=== PATIENT | male | born 1965 | race Caucasian/White ===

== ENCOUNTER 2017-02-23 12:41 | Emergency (ER) | payer BC ==
--- NOTE | 2017-02-23 13:16 | EDM.PDOC ---
ED HPI GENERAL MEDICAL PROBLEM - General Chief Complaint: ENT Problem Stated Complaint: SORE THROAT AND GUMS Time Seen by Provider: 02/23/17 12:53 Source of Information: Reports: Patient History Limitations: Reports: No Limitations - History of Present Illness INITIAL COMMENTS - FREE TEXT/NARRATIVE: History of present illness: [51-year-old male coming in complaining of repeated ear infections the left ear as well as feeling like he has thrush in his mouth due to repeated antibiotic treatments.] Review of systems: As per history of present illness and below otherwise all systems reviewed and negative. Past medical history: As per history of present illness and as reviewed below otherwise noncontributory. Surgical history: As per history of present illness and as reviewed below otherwise noncontributory. Social history: No reported history of drug or alcohol abuse. Family history: As per history of present illness and as reviewed below otherwise noncontributory. Physical exam: HEENT: Atraumatic, normocephalic, pupils reactive, negative for conjunctival pallor or scleral icterus, mucous membranes moist with obvious yeastlike plaques on gums and back of throat, left TM noted to be perforated with a wet mucoid appearance with some amount of purulent drainage and odor, neck supple, nontender, trachea midline. Lungs: Clear to auscultation, breath sounds equal bilaterally, chest nontender. Heart: S1S2, regular, negative for clicks, rubs, or JVD. Abdomen: Soft, nondistended, nontender. Negative for masses or hepatosplenomegaly. Negative for costovertebral tenderness. Pelvis: Stable nontender. Genitourinary: Deferred. Rectal: Deferred. Extremities: Atraumatic, negative for cords or calf pain. Neurovascular unremarkable. Neuro: Awake, alert, oriented. Cranial nerves II through XII unremarkable. Cerebellum unremarkable. Motor and sensory unremarkable throughout. Exam nonfocal. Patient has an appointment with an planer off bearer for a tympanoplasty as well as a dialogue about stenting his eustachian tubes due to chronic collapse and subsequent chronic ear infection on the left only. Diagnostics: [] Therapeutics: [] Impression: [#1 left otitis media #2 oral thrush] Plan: [Augmentin, nystatin swish and spit] Definitive disposition and diagnosis as appropriate pending reevaluation and review of above. - Related Data Home Meds: Home Meds Amoxicillin/Potassium Clav [Augmentin 875-125 Tablet] 1 each PO BID #20 tablet 02/23/17 [Rx] Fluconazole [IJD: Fluconazole] 150 mg PO ONETIME #2 tab 02/23/17 [Rx] Nystatin 15 ml PO BID 10 Days #300 ml 02/23/17 [Rx] ED ROS GENERAL - Review of Systems Review Of Systems: See Below (See history of present illness) ED EXAM, GENERAL - Physical Exam Exam: See Below Departure - Departure Time of Disposition: 13:14 Disposition: Home, Self-Care 01 Condition: Good Clinical Impression: Otitis media, Thrush of mouth and esophagus - Discharge Information Prescriptions: Amoxicillin/Potassium Clav [Augmentin 875-125 Tablet] 1 each PO BID #20 tablet Fluconazole [IJD: Fluconazole] 150 mg PO ONETIME #2 tab Nystatin 15 ml PO BID 10 Days #300 ml Referrals: PCP,None [Primary Care Provider] - Additional Instructions: The following information is given to patients seen in the emergency department who are being discharged to home. This information is to outline your options for follow-up care. We provide all patients seen in our emergency department with a follow-up referral. The need for follow-up, as well as the timing and circumstances, are variable depending upon the specifics of your emergency department visit. If you don't have a primary care physician on staff, we will provide you with a referral. We always advise you to contact your personal physician following an emergency department visit to inform them of the circumstance of the visit and for follow-up with them and/or the need for any referrals to a consulting specialist. The emergency department will also refer you to a specialist when appropriate. This referral assures that you have the opportunity for follow-up care with a specialist. All of these measure are taken in an effort to provide you with optimal care, which includes your follow-up. Under all circumstances we always encourage you to contact your private physician who remains a resource for coordinating your care. When calling for follow-up care, please make the office aware that this follow-up is from your recent emergency room visit. If for any reason you are refused follow-up, please contact the [facility] Emergency Department at and asked to speak to the emergency department charge nurse. Take medication as directed Follow-up with Dr. as scheduled Turned ED as needed as discussed
== END 2017-02-23 13:20 | disposition home or self-care (01) ==
LOC: MW.ED 12:41
DX: H66.92 Otitis media, unspecified, left ear (principal); B37.0 Candidal stomatitis; B37.81 Candidal esophagitis
CPT/HCPCS: 99281; 99282

== ENCOUNTER 2017-03-20 16:46 | Emergency (ER) | payer BC ==
[2017-03-20] MEDS ORDERED: Lidocaine 1% 20 ML MDV INJECT ONE (18:03)
[2017-03-20] MEDS ORDERED: Ketorolac 60 MG/2 ML SDV IM ONE (18:48)
[2017-03-20] MEDS ORDERED: CEFTRIAXONE IM ONE (18:48)
[2017-03-20] MEDS ORDERED: LIDOCAINE 1% IM ONE (18:48)
--- NOTE | 2017-03-20 18:57 | EDM.PDOC ---
ED HPI GENERAL MEDICAL PROBLEM - General Chief Complaint: Skin Complaint Stated Complaint: PT HAS BUMP ON BUTTOCK Time Seen by Provider: 03/20/17 18:30 Source of Information: Reports: Patient History Limitations: Reports: No Limitations - History of Present Illness INITIAL COMMENTS - FREE TEXT/NARRATIVE: History of present illness: [51-year-old male comes in secondary to abscess on left buttock cheek. Patient case he has been hot packing it home but now the pain is unbearable and he feels that it needs to be drained.] Review of systems: As per history of present illness and below otherwise all systems reviewed and negative. Past medical history: As per history of present illness and as reviewed below otherwise noncontributory. Surgical history: As per history of present illness and as reviewed below otherwise noncontributory. Social history: No reported history of drug or alcohol abuse. Family history: As per history of present illness and as reviewed below otherwise noncontributory. Physical exam: HEENT: Atraumatic, normocephalic, pupils reactive, negative for conjunctival pallor or scleral icterus, mucous membranes moist, throat clear, neck supple, nontender, trachea midline. Lungs: Clear to auscultation, breath sounds equal bilaterally, chest nontender. Heart: S1S2, regular, negative for clicks, rubs, or JVD. Abdomen: Soft, nondistended, nontender. Negative for masses or hepatosplenomegaly. Negative for costovertebral tenderness. Pelvis: Stable nontender. Genitourinary: Deferred. Rectal: Deferred. Extremities: Atraumatic, negative for cords or calf pain. Neurovascular unremarkable. Neuro: Awake, alert, oriented. Cranial nerves II through XII unremarkable. Cerebellum unremarkable. Motor and sensory unremarkable throughout. Exam nonfocal. Skin: Well circumscribed abscess of approximately 3 cm to left buttock cheek Area cleaned in the usual fashion with 1% lidocaine injected approximately 3ml until anesthesia was achieved. 11 blade used to make a 1 cm incision with copious amounts of thin bloody drainage obtained Iodoform gauze packed with 4 x 4's placed over cheek Rocephin and Toradol given Diagnostics: [] Therapeutics: [I&D] Impression: [Abscess of the left buttock] Plan: [Antibiotics pain medicine] Definitive disposition and diagnosis as appropriate pending reevaluation and review of above. Left Rectal Pain Score (Numeric/FACES): 10 - Related Data Allergies Allergy/AdvReac Type Severity Reaction Status Date / Time No Known Allergies Allergy Verified 03/20/17 17:48 Home Meds: Home Meds Sulfamethoxazole/Trimethoprim [Bactrim Ds Tablet] 1 each PO BID #20 tablet 03/20 [Rx] Past Medical History HEENT History: Reports: None Cardiovascular History: Reports: None Respiratory History: Reports: None Gastrointestinal History: Reports: None Genitourinary History: Reports: None Musculoskeletal History: Reports: None Neurological History: Reports: None Psychiatric History: Reports: None Endocrine/Metabolic History: Reports: None Hematologic History: Reports: None Immunologic History: Reports: None Oncologic (Cancer) History: Reports: None Dermatologic History: Reports: None - Infectious Disease History Infectious Disease History: Reports: None - Past Surgical History Head Surgeries/Procedures: Reports: None HEENT Surgical History: Reports: Myringotomy w Tube(s) Social & Family History - Family History Family Medical History: Noncontributory - Tobacco Use Smoking Status *Q: Never Smoker Second Hand Smoke Exposure: No - Caffeine Use Caffeine Use: Reports: Coffee, Tea - Recreational Drug Use Recreational Drug Use: No ED ROS GENERAL - Review of Systems Review Of Systems: See Below (See history of present illness) ED EXAM, SKIN/RASH Exam: See Below (History of present illness) Course - Vital Signs Last Recorded V/S: Last Vital Signs Temp 36.2 C 03/20/17 17:59 Pulse 69 03/20/17 17:59 Resp 18 03/20/17 17:59 BP 177/129 H 03/20/17 17:59 Pulse Ox 97 03/20/17 17:59 - Orders/Labs/Meds Meds: Medications Discontinued Medications Generic Name Dose Route Start Last Admin Trade Name Freq PRN Reason Stop Dose Admin Ceftriaxone Sodium 2,000 mg/ 1 mls @ 1 mls/sec 03/20/17 18:48 Lidocaine HCl IM 03/20/17 18:49 ONETIME ONE Ketorolac Tromethamine 60 mg 03/20/17 18:48 Toradol IM 03/20/17 18:49 ONETIME ONE Lidocaine HCl 20 ml 03/20/17 18:03 Xylocaine 1% INJECT 03/20/17 18:04 ONETIME ONE Departure - Departure Time of Disposition: 18:57 Disposition: Home, Self-Care 01 Condition: Good Clinical Impression: Abscess - Discharge Information Prescriptions: Sulfamethoxazole/Trimethoprim [Bactrim Ds Tablet] 1 each PO BID #20 tablet Referrals: PCP,None [Primary Care Provider] - Additional Instructions: The following information is given to patients seen in the emergency department who are being discharged to home. This information is to outline your options for follow-up care. We provide all patients seen in our emergency department with a follow-up referral. The need for follow-up, as well as the timing and circumstances, are variable depending upon the specifics of your emergency department visit. If you don't have a primary care physician on staff, we will provide you with a referral. We always advise you to contact your personal physician following an emergency department visit to inform them of the circumstance of the visit and for follow-up with them and/or the need for any referrals to a consulting specialist. The emergency department will also refer you to a specialist when appropriate. This referral assures that you have the opportunity for follow-up care with a specialist. All of these measure are taken in an effort to provide you with optimal care, which includes your follow-up. Under all circumstances we always encourage you to contact your private physician who remains a resource for coordinating your care. When calling for follow-up care, please make the office aware that this follow-up is from your recent emergency room visit. If for any reason you are refused follow-up, please contact the [facility] Emergency Department at and asked to speak to the emergency department charge nurse. Take medication as directed Follow-up with primary care 1-2 days Return to ED as needed as discussed
[2017-03-20] MEDS ORDERED: cefTRIAXone 2,000 MG in Lidocaine 1% 4 ML IM ONE (19:02)
== END 2017-03-20 19:38 | disposition home or self-care (01) ==
LOC: MW.ED 16:46
DX: L02.31 Cutaneous abscess of buttock (principal)
CPT/HCPCS: 10061; 96372; 99283; J0696; J1885

== ENCOUNTER 2018-06-02 13:15 | Emergency (ER) | payer BC ==
[2018-06-02] MEDS ORDERED: Sodium Chloride 0.9% 1,000 ML IV ONE (14:23)
--- NOTE | 2018-06-02 14:26 | EDM.PDOC ---
ED HPI GENERAL MEDICAL PROBLEM - General Chief Complaint: Abdominal Pain Stated Complaint: STOMACH PAIN Time Seen by Provider: 06/02/18 14:18 - History of Present Illness INITIAL COMMENTS - FREE TEXT/NARRATIVE: HISTORY AND PHYSICAL: History of present illness: Patient is a 53-year-old white male presents with a concern of abdominal pain patient over last week or so has had several episodes of intermittent abdominal pain with associated diarrhea been seen by us general surgeon who did stool studies that were negative as an outpatient he states he was improving until he had a severe episode with associated diaphoresis prior to arrival. He's had no fever or chills he denies urinary symptoms denies chest pain or shortness of breath. Review of systems: As per history of present illness and below otherwise all systems reviewed and negative. Past medical history: As per history of present illness and as reviewed below otherwise noncontributory. Surgical history: As per history of present illness and as reviewed below otherwise noncontributory. Social history: No reported history of drug or alcohol abuse. Family history: As per history of present illness and as reviewed below otherwise noncontributory. Physical exam: HEENT: Atraumatic, normocephalic, pupils reactive, negative for conjunctival pallor or scleral icterus, mucous membranes moist, throat clear, neck supple, nontender, trachea midline. Lungs: Clear to auscultation, breath sounds equal bilaterally, chest nontender. Heart: S1S2, regular, negative for clicks, rubs, or JVD. Abdomen: Soft, nondistended, nontender. Negative for masses or hepatosplenomegaly. Negative for costovertebral tenderness. Pelvis: Stable nontender. Genitourinary: Deferred. Rectal: Deferred. Extremities: Atraumatic, negative for cords or calf pain. Neurovascular unremarkable. Neuro: Awake, alert, oriented. Cranial nerves II through XII unremarkable. Cerebellum unremarkable. Motor and sensory unremarkable throughout. Exam nonfocal. Diagnostics: CBC CMP troponin lipase UA chest x-ray EKG CT abdomen and pelvis with IV contrast Therapeutics: Normal saline 1 L bolus Impression: #1 abdominal pain Definitive disposition and diagnosis as appropriate pending reevaluation and review of above. Lower Abdominal Pain Score (Numeric/FACES): 7 - Related Data Allergies Allergy/AdvReac Type Severity Reaction Status Date / Time tygan Allergy Cannot Uncoded 06/02/18 13:46 Remember Home Meds: Home Meds Albuterol [Proventil HFA] 1 - 2 puff INH Q4H PRN 02/11/18 [History] Pantoprazole [ProTONIX] 40 mg PO DAILY 06/02/18 [History] Past Medical History HEENT History: Reports: None Cardiovascular History: Reports: Hypertension Other Cardiovascular History: states has a "leaky valve" Respiratory History: Reports: Other (See Below) Other Respiratory History: emphysema Gastrointestinal History: Reports: GERD Genitourinary History: Reports: None Musculoskeletal History: Reports: None Neurological History: Reports: None Psychiatric History: Reports: None Endocrine/Metabolic History: Reports: None Hematologic History: Reports: None Immunologic History: Reports: None Oncologic (Cancer) History: Reports: None Dermatologic History: Reports: None - Infectious Disease History Infectious Disease History: Reports: Chicken Pox - Past Surgical History Head Surgeries/Procedures: Reports: None HEENT Surgical History: Reports: Myringotomy w Tube(s) GI Surgical History: Reports: Colonoscopy Social & Family History - Family History Family Medical History: Noncontributory - Tobacco Use Smoking Status *Q: Never Smoker - Caffeine Use Caffeine Use: Reports: Coffee, Tea - Recreational Drug Use Recreational Drug Use: No ED ROS GENERAL - Review of Systems Review Of Systems: ROS reveals no pertinent complaints other than HPI. ED EXAM, GENERAL - Physical Exam Exam: See Below (See dictation) Course - Vital Signs Last Recorded V/S: Last Vital Signs Temp 35.1 C L 06/02/18 13:42 Pulse 60 06/02/18 13:42 Resp 18 06/02/18 13:42 BP 162/101 H 06/02/18 13:42 Pulse Ox 98 06/02/18 13:42 - Orders/Labs/Meds Labs: Laboratory Tests 06/02/18 06/02/18 06/02/18 Range/Units 14:32 14:32 14:32 WBC 14.75 H (4.0-11.0) K/uL RBC 5.79 (4.50-5.90) M/uL Hgb 17.1 H (13.0-17.0) g/dL Hct 49.8 (38.0-50.0) % MCV 86.0 (80.0-98.0) fL MCH 29.5 (27.0-32.0) pg MCHC 34.3 (31.0-37.0) g/dL RDW Std Deviation 40.8 (28.0-62.0) fl RDW Coeff of Nallely 13 (11.0-15.0) % Plt Count 249 (150-400) K/uL MPV 12.00 (7.40-12.00) fL Neut % (Auto) 79.7 (48.0-80.0) % Lymph % (Auto) 10.0 L (16.0-40.0) % Baldwin % (Auto) 7.6 (0.0-15.0) % Eos % (Auto) 2.6 (0.0-7.0) % Baso % (Auto) 0.1 (0.0-1.5) % Neut # (Auto) 11.8 H (1.4-5.7) K/uL Lymph # (Auto) 1.5 (0.6-2.4) K/uL Baldwin # (Auto) 1.1 H (0.0-0.8) K/uL Eos # (Auto) 0.4 (0.0-0.7) K/uL Baso # (Auto) 0.0 (0.0-0.1) K/uL Nucleated RBC % 0.0 /100WBC Nucleated RBCs # 0 K/uL INR 1.00 Sodium 139 (136-148) mmol/L Potassium 4.3 (3.5-5.1) mmol/L Chloride 103 (98-107) mmol/L Carbon Dioxide 27.9 (21.0-32.0) mmol/L BUN 11 (7.0-18.0) mg/dL Creatinine 1.2 (0.8-1.3) mg/dL Est Cr Clr Drug Dosing 75.20 mL/min Estimated GFR (MDRD) > 60.0 ml/min Glucose 132 H (74-106) mg/dL Calcium 9.5 (8.5-10.1) mg/dL Total Bilirubin 1.9 H (0.2-1.0) mg/dL AST 28 (15-37) IU/L ALT 50 (14-63) IU/L Alkaline Phosphatase 69 (46-116) U/L Troponin I < 0.050 (0.000-0.056) ng/mL Total Protein 7.1 (6.4-8.2) g/dL Albumin 3.7 (3.4-5.0) g/dL Globulin 3.4 (2.6-4.0) g/dL Albumin/Globulin Ratio 1.1 (0.9-1.6) Lipase 817 H (73-393) U/L Urine Color Urine Appearance Urine pH (5.0-8.0) Ur Specific [place] (1.001-1.035) Urine Protein (NEGATIVE) mg/dL Urine Glucose (UA) (NEGATIVE) mg/dL Urine Ketones (NEGATIVE) mg/dL Urine Occult Blood (NEGATIVE) Urine Nitrite (NEGATIVE) Urine Bilirubin (NEGATIVE) Urine Urobilinogen (<2.0) EU/dL Ur Leukocyte Esterase (NEGATIVE) 06/02/18 Range/Units 15:48 WBC (4.0-11.0) K/uL RBC (4.50-5.90) M/uL Hgb (13.0-17.0) g/dL Hct (38.0-50.0) % MCV (80.0-98.0) fL MCH (27.0-32.0) pg MCHC (31.0-37.0) g/dL RDW Std Deviation (28.0-62.0) fl RDW Coeff of Nallely (11.0-15.0) % Plt Count (150-400) K/uL MPV (7.40-12.00) fL Neut % (Auto) (48.0-80.0) % Lymph % (Auto) (16.0-40.0) % Baldwin % (Auto) (0.0-15.0) % Eos % (Auto) (0.0-7.0) % Baso % (Auto) (0.0-1.5) % Neut # (Auto) (1.4-5.7) K/uL Lymph # (Auto) (0.6-2.4) K/uL Baldwin # (Auto) (0.0-0.8) K/uL Eos # (Auto) (0.0-0.7) K/uL Baso # (Auto) (0.0-0.1) K/uL Nucleated RBC % /100WBC Nucleated RBCs # K/uL INR Sodium (136-148) mmol/L Potassium (3.5-5.1) mmol/L Chloride (98-107) mmol/L Carbon Dioxide (21.0-32.0) mmol/L BUN (7.0-18.0) mg/dL Creatinine (0.8-1.3) mg/dL Est Cr Clr Drug Dosing mL/min Estimated GFR (MDRD) ml/min Glucose (74-106) mg/dL Calcium (8.5-10.1) mg/dL Total Bilirubin (0.2-1.0) mg/dL AST (15-37) IU/L ALT (14-63) IU/L Alkaline Phosphatase (46-116) U/L Troponin I (0.000-0.056) ng/mL Total Protein (6.4-8.2) g/dL Albumin (3.4-5.0) g/dL Globulin (2.6-4.0) g/dL Albumin/Globulin Ratio (0.9-1.6) Lipase (73-393) U/L Urine Color YELLOW Urine Appearance CLEAR Urine pH 6.0 (5.0-8.0) Ur Specific [place] <= 1.005 (1.001-1.035) Urine Protein NEGATIVE (NEGATIVE) mg/dL Urine Glucose (UA) NEGATIVE (NEGATIVE) mg/dL Urine Ketones NEGATIVE (NEGATIVE) mg/dL Urine Occult Blood NEGATIVE (NEGATIVE) Urine Nitrite NEGATIVE (NEGATIVE) Urine Bilirubin NEGATIVE (NEGATIVE) Urine Urobilinogen 0.2 (<2.0) EU/dL Ur Leukocyte Esterase NEGATIVE (NEGATIVE) Meds: Medications Discontinued Medications Generic Name Dose Route Start Last Admin Trade Name Ramoneq PRN Reason Stop Dose Admin Sodium Chloride 1,000 mls @ 999 mls/hr 06/02/18 14:23 06/02/18 14:38 Normal Saline IV 06/02/18 15:23 999 mls/hr STAT ONE Administration Iopamidol 100 ml 06/02/18 15:20 06/02/18 15:49 Isovue Multipack-370 (76%) IVPUSH 06/02/18 15:21 100 ml ONETIME STA Administration Departure - Departure Time of Disposition: 16:13 Disposition: Home, Self-Care 01 Condition: Good Clinical Impression: Enteritis, Pancreatitis - Discharge Information Referrals: PCP,Unknown [Primary Care Provider] - Forms: ED Department Discharge Additional Instructions: The following information is given to patients seen in the emergency department who are being discharged to home. This information is to outline your options for follow-up care. We provide all patients seen in our emergency department with a follow-up referral. The need for follow-up, as well as the timing and circumstances, are variable depending upon the specifics of your emergency department visit. If you don't have a primary care physician on staff, we will provide you with a referral. We always advise you to contact your personal physician following an emergency department visit to inform them of the circumstance of the visit and for follow-up with them and/or the need for any referrals to a consulting specialist. The emergency department will also refer you to a specialist when appropriate. This referral assures that you have the opportunity for followup care with a specialist. All of these measure are taken in an effort to provide you with optimal care, which includes your followup. Under all circumstances we always encourage you to contact your private physician who remains a resource for coordinating your care. When calling for followup care, please make the office aware that this follow-up is from your recent emergency room visit. If for any reason you are refused follow-up, please contact the [facility] emergency department at and asked to speak to the emergency department charge nurse. [facility] - General Surgery Professional Building [address] [place] [address], [address] [place] [address] Cipro/Flagyl as directed push fluids avoid alcohol bland diet as discussed follow-up with general surgery return as needed as discussed
[2018-06-02 15:11] LABS: CHLORIDE,CL 103 mmol/L (98-107); SODIUM,NA 139 mmol/L (136-148)
[2018-06-02] MEDS ORDERED: Iopamidol 755 MG/ML 200 ML Multipack Bottle IVPUSH STA (15:20)
--- NOTE | 2018-06-02 15:47 | CR ---
EXAMINATION: Portable chest radiograph. HISTORY: Shortness of breath. FINDINGS: The trachea is midline. The cardiomediastinal silhouette is within normal limits. No pulmonary infiltrates, effusions or pneumothorax. Osseous structures appear unremarkable. IMPRESSION: No acute cardiopulmonary process.
--- NOTE | 2018-06-02 16:06 | CT ---
CT of the abdomen and pelvis with contrast. HISTORY: Pain TECHNIQUE: Axial CT images were obtained of the abdomen and pelvis following administration of 100 mL of Isovue-370 in the right antecubital fossa without complication. Coronal and sagittal reconstructions obtained. FINDINGS: The lung bases are clear, no pleural effusion. The liver, spleen, adrenal glands, and pancreas appear normal. The gallbladder is normal. There is no bulky retroperitoneal lymphadenopathy or abdominal ascites. The kidneys enhance and function symmetrically without evidence of obstructive uropathy. The large and small bowel are normal in caliber without evidence of obstruction. No focal pericolonic inflammation or stranding. There is however moderate stranding adjacent to the majority of the jejunum with a small amount of free pelvic fluid. The appendix is normal. Urinary bladder is normal. A few scattered sigmoid diverticula. No pelvic lymphadenopathy. No suspicious osseous abnormalities identified. Chronic spondylolysis at L5. IMPRESSION: 1. Moderate stranding adjacent to the majority of the jejunum and less so the ileum, likely representing an infectious versus inflammatory enteritis. 2. Minimal diverticulosis without evidence of diverticulitis.
== END 2018-06-02 16:21 | disposition home or self-care (01) ==
LOC: MW.ED 13:15
DX: K52.9 Noninfective gastroenteritis and colitis, unspecified (principal); K85.90 Acute pancreatitis without necrosis or infection, unspecified; I10 Essential (primary) hypertension; K21.9 Gastro-esophageal reflux disease without esophagitis; Z88.8 Allergy status to other drugs, medicaments and biological substances; Z79.899 Other long term (current) drug therapy
CPT/HCPCS: 36415; 71045; 74177; 80053; 81003; 83690; 84484; 85025; 85610; 96360; 99284; J7040; Q9967

== ENCOUNTER 2018-06-22 07:02 | Emergency (ER) | payer BC ==
[2018-06-22] MEDS ORDERED: Ondansetron 4 MG/2 ML SDV IVPUSH ONE (07:08)
[2018-06-22] MEDS ORDERED: Sodium Chloride 0.9% 1,000 ML IV ONE (07:08)
[2018-06-22] MEDS ORDERED: Ketorolac 30 MG/ML SDV IVPUSH ONE (07:08)
--- NOTE | 2018-06-22 07:09 | EDM.PDOC ---
ED HPI GENERAL MEDICAL PROBLEM - General Chief Complaint: Abdominal Pain Stated Complaint: ABDOMINAL PAIN Time Seen by Provider: 06/22/18 07:09 Source of Information: Reports: Patient - History of Present Illness INITIAL COMMENTS - FREE TEXT/NARRATIVE: HISTORY AND PHYSICAL: History of present illness: [Patient presents with abdominal pain nausea and diarrhea He's had symptoms present over the last month with a negative CT outside of enteritis perform the end of May, he is scheduled for upper endoscopy tomorrow, he is followed with Dr. Jake Grubbs has a negative stool workup however he was placed on Cipro and Flagyl with improvement of symptoms at least while he was taking the medication Today no fever he has had some nausea and loose stools watery, I am repeating stool testing and adding Bradford virus and performing ultrasound right upper quadrant colonoscopy may be a consideration as well is been 5 years since his last colonoscopy Review of systems: As per history of present illness and below otherwise all systems reviewed and negative. Past medical history: As per history of present illness and as reviewed below otherwise noncontributory. Surgical history: As per history of present illness and as reviewed below otherwise noncontributory. Social history: No reported history of drug or alcohol abuse. Family history: As per history of present illness and as reviewed below otherwise noncontributory. Physical exam: HEENT: Atraumatic, normocephalic, pupils reactive, negative for conjunctival pallor or scleral icterus, mucous membranes moist, throat clear, neck supple, nontender, trachea midline. Lungs: Clear to auscultation, breath sounds equal bilaterally, chest nontender. Heart: S1S2, regular, negative for clicks, rubs, or JVD. Abdomen: Soft, nondistended, nontender. Negative for masses or hepatosplenomegaly. Negative for costovertebral tenderness. Pelvis: Stable nontender. Genitourinary: Deferred. Rectal: Deferred. Extremities: Atraumatic, negative for cords or calf pain. Neurovascular unremarkable. Neuro: Awake, alert, oriented. Cranial nerves II through XII unremarkable. Cerebellum unremarkable. Motor and sensory unremarkable throughout. Exam nonfocal. Diagnostics: [CBC CMP UA troponin lipase CT abdomen pelvis with contrast] file from previous Right upper quadrant ultrasound Stool studies Therapeutics: Normal saline, Zofran, Toradol Cipro, Impression: [Abdominal pain ] Gastroenteritis Definitive disposition and diagnosis as appropriate pending reevaluation and review of above. abdominal Pain Score (Numeric/FACES): 5 - Related Data Allergies Allergy/AdvReac Type Severity Reaction Status Date / Time trimethobenzamide Allergy Cannot Verified 06/22/18 07:06 [From Tigan] Remember Home Meds: Home Meds . [No Known Home Meds] 06/22/18 [History] Past Medical History HEENT History: Reports: None Cardiovascular History: Reports: Hypertension Other Cardiovascular History: states has a "leaky valve" Respiratory History: Reports: Other (See Below) Other Respiratory History: emphysema Gastrointestinal History: Reports: GERD Genitourinary History: Reports: None Musculoskeletal History: Reports: None Neurological History: Reports: None Psychiatric History: Reports: None Endocrine/Metabolic History: Reports: None Hematologic History: Reports: None Immunologic History: Reports: None Oncologic (Cancer) History: Reports: None Dermatologic History: Reports: None - Infectious Disease History Infectious Disease History: Reports: Chicken Pox - Past Surgical History Head Surgeries/Procedures: Reports: None HEENT Surgical History: Reports: Myringotomy w Tube(s) GI Surgical History: Reports: Colonoscopy Social & Family History - Family History Family Medical History: Noncontributory - Caffeine Use Caffeine Use: Reports: Coffee, Tea ED ROS GENERAL - Review of Systems Review Of Systems: See Below ED EXAM, GENERAL - Physical Exam Exam: See Below Course - Vital Signs Last Recorded V/S: Last Vital Signs Temp 96.9 F 06/22/18 07:06 Pulse 87 06/22/18 07:06 Resp 18 06/22/18 07:06 BP 154/83 H 06/22/18 07:06 Pulse Ox 96 06/22/18 07:06 - Orders/Labs/Meds Orders: Active Orders 24 hr Category Date Time Status CDIFF TOX A+B [OP] Stat Lab 06/22/18 07:29 Ordered CULTURE STOOL + CAMPY+SHIGATOX [RM] Stat Lab 06/22/18 07:29 Ordered Guaiac [OCCULT BLOOD DIAGNOSTIC] [OP] Stat Lab 06/22/18 07:29 Ordered NOROVIRUS, RT-PCR Stat Lab 06/22/18 07:57 Ordered OVA PARASITE EXAM Stat Lab 06/22/18 07:42 Ordered UA RFX KASSANDRA AND CULT IF INDIC [URIN] Stat Lab 06/22/18 07:08 Ordered Labs: Laboratory Tests 06/22/18 06/22/18 Range/Units 07:17 07:17 WBC 11.96 H (4.0-11.0) K/uL RBC 5.72 (4.50-5.90) M/uL Hgb 17.2 H (13.0-17.0) g/dL Hct 49.1 (38.0-50.0) % MCV 85.8 (80.0-98.0) fL MCH 30.1 (27.0-32.0) pg MCHC 35.0 (31.0-37.0) g/dL RDW Std Deviation 39.8 (28.0-62.0) fl RDW Coeff of [place]alle[place] 13 (11.0-15.0) % Plt Count 278 (150-400) K/uL MPV 12.10 H (7.40-12.00) fL Neut % (Auto) 58.6 (48.0-80.0) % Lymph % (Auto) 20.6 (16.0-40.0) % [place] % (Auto) 8.4 (0.0-15.0) % Eos % (Auto) 11.9 H (0.0-7.0) % Baso % (Auto) 0.5 (0.0-1.5) % Neut # (Auto) 7.0 H (1.4-5.7) K/uL Lymph # (Auto) 2.5 H (0.6-2.4) K/uL [place] # (Auto) 1.0 H (0.0-0.8) K/uL Eos # (Auto) 1.4 H (0.0-0.7) K/uL Baso # (Auto) 0.1 (0.0-0.1) K/uL Nucleated RBC % 0.0 /100WBC Nucleated RBCs # 0 K/uL Sodium 135 L (136-148) mmol/L Potassium 3.9 (3.5-5.1) mmol/L Chloride 100 (98-107) mmol/L Carbon Dioxide 26.5 (21.0-32.0) mmol/L BUN 11 (7.0-18.0) mg/dL Creatinine 1.1 (0.8-1.3) mg/dL Est Cr Clr Drug Dosing 82.03 mL/min Estimated GFR (MDRD) > 60.0 ml/min Glucose 131 H (74-106) mg/dL Calcium 9.1 (8.5-10.1) mg/dL Total Bilirubin 3.5 H (0.2-1.0) mg/dL AST 27 (15-37) IU/L ALT 45 (14-63) IU/L Alkaline Phosphatase 85 (46-116) U/L Troponin I < 0.050 (0.000-0.056) ng/mL Total Protein 7.6 (6.4-8.2) g/dL Albumin 3.9 (3.4-5.0) g/dL Globulin 3.7 (2.6-4.0) g/dL Albumin/Globulin Ratio 1.1 (0.9-1.6) Lipase 186 (73-393) U/L Meds: Medications Discontinued Medications Generic Name Dose Route Start Last Admin Trade Name Freq PRN Reason Stop Dose Admin Sodium Chloride 1,000 mls @ 999 mls/hr 06/22/18 07:08 06/22/18 07:20 Normal Saline IV 06/22/18 08:08 999 mls/hr STAT ONE Administration Ketorolac Tromethamine 30 mg 06/22/18 07:08 06/22/18 07:20 Toradol IVPUSH 06/22/18 07:09 30 mg ONETIME ONE Administration Ondansetron HCl 8 mg 06/22/18 07:08 06/22/18 07:20 Zofran IVPUSH 06/22/18 07:09 8 mg ONETIME ONE Administration Departure - Departure Time of Disposition: 08:49 Disposition: Home, Self-Care 01 Condition: Good Clinical Impression: Gastroenteritis - Discharge Information Referrals: Brenton Penaloza MD [Primary Care Provider] - Forms: ED Department Discharge Additional Instructions: Stool testing equipment and supplies, return sample to emergency room for testing or to Dr. Holm for testing Cipro 500 mg by mouth twice a day #20 no refill Return if symptoms persist or worsen Proceed with upper endoscopy consider lower endoscopy The following information is given to patients seen in the emergency department who are being discharged to home. This information is to outline your options for follow-up care. We provide all patients seen in our emergency department with a follow-up referral. The need for follow-up, as well as the timing and circumstances, are variable depending upon the specifics of your emergency department visit. If you don't have a primary care physician on staff, we will provide you with a referral. We always advise you to contact your personal physician following an emergency department visit to inform them of the circumstance of the visit and for follow-up with them and/or the need for any referrals to a consulting specialist. The emergency department will also refer you to a specialist when appropriate. This referral assures that you have the opportunity for follow-up care with a specialist. All of these measure are taken in an effort to provide you with optimal care, which includes your follow-up. Under all circumstances we always encourage you to contact your private physician who remains a resource for coordinating your care. When calling for follow-up care, please make the office aware that this follow-up is from your recent emergency room visit. If for any reason you are refused follow-up, please contact the [facility] emergency department at and asked to speak to the emergency department charge nurse. - My Orders Last 24 Hours: My Active Orders 06/22/18 07:08 UA RFX KASSANDRA AND CULT IF INDIC [URIN] Stat 06/22/18 07:29 CDIFF TOX A+B [OP] Stat CULTURE STOOL + CAMPY+SHIGATOX [RM] Stat Guaiac [OCCULT BLOOD DIAGNOSTIC] [OP] Stat 06/22/18 07:42 OVA PARASITE EXAM Stat 06/22/18 07:57 NOROVIRUS, RT-PCR Stat - Assessment/Plan Last 24 Hours: My Active Orders 06/22/18 07:08 UA RFX KASSANDRA AND CULT IF INDIC [URIN] Stat 06/22/18 07:29 CDIFF TOX A+B [OP] Stat CULTURE STOOL + CAMPY+SHIGATOX [RM] Stat Guaiac [OCCULT BLOOD DIAGNOSTIC] [OP] Stat 06/22/18 07:42 OVA PARASITE EXAM Stat 06/22/18 07:57 NOROVIRUS, RT-PCR Stat
[2018-06-22 07:51] LABS: CHLORIDE,CL 100 mmol/L (98-107); SODIUM,NA 135 mmol/L (136-148)
--- NOTE | 2018-06-22 08:37 | US ---
EXAMINATION: Right upper quadrant ultrasound HISTORY: Pain COMPARISON: CT dated 06/02/2018 TECHNIQUE: Grayscale and color Doppler imaging obtained of the right upper quadrant. FINDINGS: The visualized pancreas appears normal. The liver is moderately increased in generalized echotexture without a focal hepatic mass. The gallbladder wall thickness is normal. No pericholecystic fluid or shadowing gallstones. Common bile duct measures 6 mm. The right kidney measures 10.1 cm [id number] without evidence of hydronephrosis. Negative sonographic Chacon sign. IMPRESSION: 1. Moderate fatty infiltration of the liver, otherwise unremarkable abdomen.
== END 2018-06-22 09:03 | disposition home or self-care (01) ==
LOC: MW.ED 07:02
DX: K52.9 Noninfective gastroenteritis and colitis, unspecified (principal); I10 Essential (primary) hypertension; Z88.8 Allergy status to other drugs, medicaments and biological substances; Z96.22 Myringotomy tube(s) status
CPT/HCPCS: 36415; 76705; 80053; 82272; 83690; 84484; 85025; 87046; 87324; 87328; 87329; 87798; 99284; J1885; J2405; J7040; 87899; 99283

== ENCOUNTER 2018-07-21 08:46 | Day surgery (SDC) | payer BC ==
[~2018-07-21 08:46] MED LIST: Lactated Ringers 1,000 ML IV SCH; Sodium Chloride 0.9% 10 ML Syringe FLUSH PRN; Sodium Chloride 0.9% 2.5 ML Syringe FLUSH PRN
--- NOTE | 2018-07-21 10:51 | PCM.PREANE ---
Preanesthetic Assessment - Anesthesia/Transfusion/Family Hx Anesthesia History: Prior Anesthesia Without Reaction Family History of Anesthesia Reaction: No Transfusion History: No Prior Transfusion(s) Intubation History: Unknown - Review of Systems General: No Symptoms Pulmonary: No Symptoms Cardiovascular: No Symptoms Gastrointestinal: Abdominal Pain, Diarrhea, Difficulty Swallowing Neurological: No Symptoms Other: Reports: None - Physical Assessment O2 Sat by Pulse Oximetry: 96 Respiratory Rate: 16 Vital Signs: Last Vital Signs Temp 36.3 C 07/21/18 10:05 Pulse 60 07/21/18 10:05 Resp 16 07/21/18 10:05 BP 140/94 H 07/21/18 10:05 Pulse Ox 96 07/21/18 10:05 Height: 1.78 m Weight: 114.305 kg ASA Class: 3 Mental Status: Alert & Oriented x3 Airway Class: Mallampati = 2 Dentition: Reports: Normal Dentition, [place](s) (x1 upper front (# 1)) Thyro-Mental Finger Breadths: 3 Mouth Opening Finger Breadths: 3 ROM/Head Extension: Full Lungs: Clear to Auscultation, Normal Respiratory Effort Cardiovascular: Regular Rate, Regular Rhythm - Allergies Allergies/Adverse Reactions: Allergies Allergy/AdvReac Type Severity Reaction Status Date / Time trimethobenzamide Allergy Cannot Verified 07/16/18 08:08 [From Tigan] Remember - Blood Blood Available: No - Anesthesia Plan Pre-Op Medication Ordered: None - Acknowledgements Anesthesia Type Planned: MAC Pt an Appropriate Candidate for the Planned Anesthesia: Yes Alternatives and Risks of Anesthesia Discussed w Pt/Guardian: Yes Pt/Guardian Understands and Agrees with Anesthesia Plan: Yes PreAnesthesia Questionnaire HEENT History: Reports: None Cardiovascular History: Reports: Hypertension Other Cardiovascular History: states has a "leaky valve" Respiratory History: Reports: Sleep Apnea (does not use CPAP mask), Other (See Below) Other Respiratory History: emphysema, mild form Gastrointestinal History: Reports: GERD Other Gastrointestinal History: esophagitis, diarrhea and abd pain Genitourinary History: Reports: None Musculoskeletal History: Reports: None Neurological History: Reports: None Psychiatric History: Reports: None Endocrine/Metabolic History: Reports: Obesity/BMI 30+ Hematologic History: Reports: None Immunologic History: Reports: None Oncologic (Cancer) History: Reports: None Dermatologic History: Reports: None - Infectious Disease History Infectious Disease History: Reports: Chicken Pox - Past Surgical History Head Surgeries/Procedures: Reports: None HEENT Surgical History: Reports: Myringotomy w Tube(s) GI Surgical History: Reports: Colonoscopy, EGD (in february - severe esophagitis) - SUBSTANCE USE Smoking Status *Q: Never Smoker Recreational Drug Use History: No - HOME MEDS Home Medications: Home Meds . [No Known Home Meds] 06/22/18 [History] - CURRENT (IN HOUSE) MEDS Current Meds: Current Medications Lactated Ringer's (Ringers, Lactated) 1,000 mls @ 125 mls/hr IV ASDIRECTED BP Last Admin: 07/21/18 10:15 Dose: 125 mls/hr Sodium Chloride (Saline Flush) 10 ml FLUSH ASDIRECTED PRN PRN Reason: Keep Vein Open Sodium Chloride (Saline Flush) 2.5 ml FLUSH ASDIRECTED PRN PRN Reason: Keep Vein Open
[2018-07-21] MEDS ORDERED: Midazolam 1 MG/ML 2 ML SDV ONE (11:59)
[2018-07-21] MEDS ORDERED: fentaNYL 100 MCG/2 ML SDV ONE (11:59)
[2018-07-21] MEDS ORDERED: Ondansetron 4 MG/2 ML SDV ONE (11:59)
[2018-07-21] MEDS ORDERED: Propofol 200 MG/20 ML SDV ONE (11:59)
--- NOTE | 2018-07-21 12:45 | PCM.POSTAN ---
POST ANESTHESIA ASSESSMENT - MENTAL STATUS Mental Status: Alert, Oriented - RESPIRATORY Respiratory Status: Respiratory Rate WNL, Airway Patent, O2 Saturation Stable - CARDIOVASCULAR CV Status: Pulse Rate WNL, Blood Pressure Stable - GASTROINTESTINAL GI Status: No Symptoms - PAIN Pain Score: 0 - POST OP HYDRATION Hydration Status: Adequate & Stable - OBSERVATIONS Free Text/Narrative:: no anesthesia problems, patient skipped recovery room phase of postoperative care
--- NOTE | 2018-07-21 12:54 | PCM.OPNOTE ---
- General Post-Op/Procedure Note Date of Surgery/Procedure: 07/21/18 Operative Procedure(s): Diagnostic egd Findings: Normal appearing esophagus, hyperplastic gastric polyps Pre Op Diagnosis: Esophagitis Post-Op Diagnosis: Hyperplastic gastric polyp, normal appearing EGD Anesthesia Technique: JUNAID Primary Surgeon: Jaimee Newberry Condition: Good
--- NOTE | 2018-07-22 13:22 | OR ---
SURGEON: BRANDON RAZO MD DATE OF PROCEDURE: 07/21/2018 PREOPERATIVE DIAGNOSIS: History of esophagitis. POSTOPERATIVE DIAGNOSES: 1. History of esophagitis. 2. Hyperplastic gastric polyp. PROCEDURE PERFORMED: Diagnostic esophagogastroduodenoscopy. ANESTHESIA: MAC. INSTRUMENT USED: Olympus endoscope. EXTENT OF EXAM: To the second portion of duodenum. PREPARATION: Good. LIMITATIONS: None. INDICATION FOR EXAMINATION: The patient is a 53-year-old male who was found to have esophagitis on a recent EGD. It is now over three months since his last EGD and he has been on PPI since then. All of his reflux symptoms are gone. We discussed the need for a repeat EGD. The patient and I reviewed the procedure, the expected perioperative course, and the risks including bleeding, infection, or perforation. The patient verbalized understanding and wishes to proceed. PROCEDURE IN DETAIL: The patient was brought to the endoscopy suite and placed in a beach chair position. A time-out was completed verifying the patient's name, age, date of , allergies, and procedure to be performed. A bite block was placed in the patient's mouth. Monitored anesthesia care was induced and continuous oxygen was provided via nasal cannula throughout the procedure. After adequate sedation was achieved, a well lubricated endoscope was placed in the patient's mouth and advanced under direct visualization to the second portion of duodenum. This appeared normal and a photograph was taken. The scope was then fully withdrawn while examining the color, texture, anatomy, and integrity of mucosa of the upper GI tract. The duodenum appeared to be free of pathology. The scope was brought into the stomach and a photograph was taken of the pylorus and GE junction. Both appeared normal. The patient did have some hyperplastic appearing polyps within the body of the stomach. One of these was biopsied and sent to pathology. The scope was then brought into the distal esophagus. The Z- line appeared normal. There was no evidence of any gross esophagitis. Narrow band imaging was used and again I saw no evidence of any dysplasia. Biopsies were taken 1 cm above the Z-line, to be sent to pathology for further examination. The remainder of the esophagus appeared normal. The scope was removed and the procedure terminated. The patient tolerated procedure well and was taken back to the preop area in stable condition. ENDOSCOPIC DIAGNOSES: 1. History of esophagitis. 2. Hyperplastic gastric polyp. RECOMMENDATIONS: We will follow up with the patient in clinic in 2 weeks to discuss the biopsy results as well as to discuss his bowel habits. He was recently diagnosed with Campylobacter and liked to be tested again to ensure that the bacteria is gone. JAUN AMATO /[id number]
== END 2018-07-21 13:14 | disposition home or self-care (01) ==
LOC: MW.SDS 08:46
PROVIDERS: ATTEND Surgery
DX: K20.9 Esophagitis, unspecified (principal); K31.7 Polyp of stomach and duodenum; J44.9 Chronic obstructive pulmonary disease, unspecified; K21.9 Gastro-esophageal reflux disease without esophagitis; I10 Essential (primary) hypertension; E66.9 Obesity, unspecified; A04.5 Campylobacter enteritis; F41.9 Anxiety disorder, unspecified; Z79.899 Other long term (current) drug therapy
CPT/HCPCS: 43239; 88305; J2001; J2250; J2405; J2704; J3010; J7120; 00731

== ENCOUNTER 2019-11-24 11:16 | Day surgery (SDC) | payer BC ==
[~2019-11-24 11:16] MED LIST changes: +Glycopyrrolate 0.2 MG/ML SDV ONE; +Lidocaine 2% 5 ML SDV ONE; +Midazolam 1 MG/ML 2 ML SDV ONE; +Propofol 200 MG/20 ML SDV ONE; +Sodium Chloride 0.9% 10 ML SDV IV PRN
--- NOTE | 2019-11-24 12:26 | PCM.PREANE ---
Preanesthetic Assessment - Anesthesia/Transfusion/Family Hx Anesthesia History: Prior Anesthesia Without Reaction Family History of Anesthesia Reaction: No Transfusion History: No Prior Transfusion(s) Intubation History: Unknown - Review of Systems General: No Symptoms Pulmonary: No Symptoms Cardiovascular: No Symptoms Gastrointestinal: Difficulty Swallowing Neurological: No Symptoms Other: Reports: None - Physical Assessment NPO Status Date: 11/24/19 NPO Status Time: 09:00 Vital Signs: Last Vital Signs Temp 36.5 C 11/24/19 11:25 Pulse 54 L 11/24/19 11:25 Resp 16 11/24/19 11:25 BP 135/95 H 11/24/19 11:25 Pulse Ox 97 11/24/19 11:25 Height: 5 ft 10 in Weight: 109.316 kg ASA Class: 2 Mental Status: Alert & Oriented x3 Airway Class: Mallampati = 2 Dentition: Reports: Normal Dentition, [place](s) (x1 upper front, x1 lower right (back) and x1 lower left (back)) Thyro-Mental Finger Breadths: 3 Mouth Opening Finger Breadths: 3 ROM/Head Extension: Full Lungs: Clear to Auscultation, Normal Respiratory Effort Cardiovascular: Regular Rate, Regular Rhythm - Allergies Allergies/Adverse Reactions: Allergies Allergy/AdvReac Type Severity Reaction Status Date / Time trimethobenzamide Allergy Cannot Verified 11/19/19 14:05 [facility] Remember - Blood Blood Available: No - Anesthesia Plan Pre-Op Medication Ordered: None - Acknowledgements Anesthesia Type Planned: MAC Pt an Appropriate Candidate for the Planned Anesthesia: Yes Alternatives and Risks of Anesthesia Discussed w Pt/Guardian: Yes Pt/Guardian Understands and Agrees with Anesthesia Plan: Yes PreAnesthesia Questionnaire HEENT History: Reports: None Cardiovascular History: Reports: Hypertension Other Cardiovascular History: states has a "leaky valve" Respiratory History: Reports: COPD (mild), Sleep Apnea Other Respiratory History: uses CPAP until 2 months ago- said his sleeping improved so he quit using it Gastrointestinal History: Reports: GERD Other Gastrointestinal History: esophagitis, diarrhea and abd pain Genitourinary History: Reports: None Musculoskeletal History: Reports: None Neurological History: Reports: None Psychiatric History: Reports: Anxiety Endocrine/Metabolic History: Reports: Obesity/BMI 30+ Hematologic History: Reports: None Immunologic History: Reports: None Oncologic (Cancer) History: Reports: None Dermatologic History: Reports: None - Infectious Disease History Infectious Disease History: Reports: Chicken Pox - Past Surgical History Head Surgeries/Procedures: Reports: None HEENT Surgical History: Reports: Myringotomy w Tube(s) GI Surgical History: Reports: EGD (a year ago) - SUBSTANCE USE Smoking Status *Q: Never Smoker Recreational Drug Use History: No - HOME MEDS Home Medications: Home Meds Pantoprazole Sodium [Protonix] 40 mg PO DAILY 11/19/19 [History] amLODIPine Besylate [Amlodipine Besylate] 5 mg PO QAM 11/19/19 [History] - CURRENT (IN HOUSE) MEDS Current Meds: Current Medications Lactated Ringer's (Ringers, Lactated) 1,000 mls @ 125 mls/hr IV ASDIRECTED PB Last Admin: 11/24/19 11:49 Dose: 125 mls/hr Documented by: Sodium Chloride (Saline Flush) 10 ml FLUSH ASDIRECTED PRN PRN Reason: Keep Vein Open Sodium Chloride (Saline Flush) 2.5 ml FLUSH ASDIRECTED PRN PRN Reason: Keep Vein Open Sodium Chloride (Saline Flush) 10 ml FLUSH ASDIRECTED PRN PRN Reason: Keep Vein Open Sodium Chloride (Saline Flush) 2.5 ml FLUSH ASDIRECTED PRN PRN Reason: Keep Vein Open Sodium Chloride (Normal Saline) 10 ml IV ASDIRECTED PRN PRN Reason: IV Use Discontinued Medications Glycopyrrolate (Robinul) Confirm Administered Dose 0.2 mg .ROUTE .STK-MED ONE Stop: 11/24/19 10:33 Lidocaine (Xylocaine-Mpf 2%) Confirm Administered Dose 5 ml .ROUTE .STK-MED ONE Stop: 11/24/19 10:33 Midazolam HCl (Versed 1 Mg/Ml) Confirm Administered Dose 2 mg .ROUTE .STK-MED ONE Stop: 11/24/19 10:33 Propofol (Diprivan 20 Ml) Confirm Administered Dose 400 mg .ROUTE .STK-MED ONE Stop: 11/24/19 10:33
[2019-11-24] MEDS ORDERED: Propofol 200 MG/20 ML SDV ONE (13:45)
--- NOTE | 2019-11-24 14:18 | PCM.POSTAN ---
POST ANESTHESIA ASSESSMENT - MENTAL STATUS Mental Status: Alert - VITAL SIGNS Vital Signs: Last Vital Signs Temp 36.5 C 11/24/19 11:25 Pulse 59 L 11/24/19 14:11 Resp 18 11/24/19 14:11 BP 112/79 11/24/19 14:11 Pulse Ox 96 11/24/19 14:11 - RESPIRATORY Respiratory Status: Respiratory Rate WNL - CARDIOVASCULAR CV Status: Pulse Rate WNL - GASTROINTESTINAL GI Status: No Symptoms - POST OP HYDRATION Hydration Status: Adequate & Stable
--- NOTE | 2019-11-24 14:24 | PCM.OPNOTE ---
- General Post-Op/Procedure Note Date of Surgery/Procedure: 11/24/19 Operative Procedure(s): Diagnostic EGD with biopsy Findings: Mildly dilated esophagus, no evidence of esophagitis. Hyperplastic gastric polyp Pre Op Diagnosis: History of esophagitis Post-Op Diagnosis: Hyperplastic gastric polyps Anesthesia Technique: MAC Primary Surgeon: Jaimee Newberry Condition: Good Free Text/Narrative:: Intake & Output 11/23/19 11/24/19 11/24/19 22:59 06:59 14:59 Intake Total 600 Balance 600
--- NOTE | 2019-11-24 14:47 | PCM48HPAN ---
Post Anesthesia Note - EVALUATION WITHIN 48HRS OF ANESTHETIC Vital Signs in Normal Range: Yes Patient Participated in Evaluation: Yes Respiratory Function Stable: Yes Airway Patent: Yes Cardiovascular Function Stable: Yes Hydration Status Stable: Yes Pain Control Satisfactory: Yes Nausea and Vomiting Control Satisfactory: Yes Mental Status Recovered: Yes Vital Signs: Last Vital Signs Temp 36.8 C 11/24/19 14:16 Pulse 58 L 11/24/19 14:16 Resp 14 11/24/19 14:16 BP 123/87 11/24/19 14:16 Pulse Ox 96 11/24/19 14:16 - COMMENTS/OBSERVATIONS Free Text/Narrative:: No anesthesia problems
--- NOTE | 2019-11-24 14:55 | PCM48HPAN ---
Post Anesthesia Note - EVALUATION WITHIN 48HRS OF ANESTHETIC Vital Signs in Normal Range: Yes Patient Participated in Evaluation: Yes Respiratory Function Stable: Yes Airway Patent: Yes Cardiovascular Function Stable: Yes Hydration Status Stable: Yes Pain Control Satisfactory: Yes Nausea and Vomiting Control Satisfactory: Yes Mental Status Recovered: Yes Vital Signs: Last Vital Signs Temp 36.8 C 11/24/19 14:16 Pulse 58 L 11/24/19 14:16 Resp 14 11/24/19 14:16 BP 123/87 11/24/19 14:16 Pulse Ox 96 11/24/19 14:16
--- NOTE | 2019-11-29 16:47 | OR ---
SURGEON: JAIMEE NEWBERRY MD DATE OF PROCEDURE: 11/24/2019 PREOPERATIVE DIAGNOSIS: History of esophagitis. POSTOPERATIVE DIAGNOSIS: Hyperplastic gastric polyps. PROCEDURE PERFORMED: Diagnostic esophagogastroduodenoscopy with biopsy. PRIMARY SURGEON: Jaimee Newberry MD ANESTHESIA: MAC. INSTRUMENT USED: Olympus endoscope. EXTENT OF EXAM: To the second portion of duodenum. PREPARATION: Good. LIMITATIONS: None. INDICATIONS FOR EXAMINATION: The patient is a 54-year-old male with a previous history of esophagitis. He has been on pantoprazole with good relief in his symptoms. He recently ran out of his prescription and his symptoms returned. He is due for a repeat EGD. I re-prescribed his pantoprazole prior to the procedure. I explained the procedure, expected perioperative course, and risks. The patient verbalized understanding and wishes to proceed. PROCEDURE IN DETAIL: The patient was brought into the endoscopy suite and placed in the left lateral decubitus position. A time-out was completed verifying the patient's name, age, date of , allergies, and procedure to be performed. Monitored anesthesia care was induced and continuous oxygen was provided via nasal cannula throughout the procedure. After adequate sedation was achieved, a well-lubricated endoscope was placed in the patient's mouth and advanced under direct visualization to the level of the second portion of duodenum. This appeared normal and a photograph was taken. The scope was then fully withdrawn while examining the color, texture, anatomy, and integrity of the mucosa of the upper GI tract. The duodenum appeared normal. The scope was then brought in the stomach and a photograph was taken of the pylorus and the GE junction. Both appeared normal. Within the gastric body, there appeared to be hyperplastic polyps. One of these was biopsied and sent to pathology as gastric polyp. Biopsies were taken of the gastric antrum, body, and fundus and sent for histologic review and H. pylori testing. The gastric mucosa otherwise appeared normal. The scope was brought into the distal esophagus and a photograph was taken of the Z-line. This appeared normal. The esophagus itself showed no signs of severe ulceration or severe inflammation. A biopsy was taken of the distal esophageal mucosa 1 cm above the Z-line. The remainder of the esophagus was free of pathology. The scope was removed and the procedure was terminated. The patient tolerated the procedure well and was transferred to the PACU in stable condition. ENDOSCOPIC DIAGNOSIS: Hyperplastic gastric polyps. RECOMMENDATIONS: Follow up in clinic in 2 weeks. JUAN AMATO /[id number]
== END 2019-11-24 14:42 | disposition home or self-care (01) ==
LOC: MW.SDS 11:16
PROVIDERS: ATTEND Surgery
DX: K29.50 Unspecified chronic gastritis without bleeding (principal); K21.0 Gastro-esophageal reflux disease with esophagitis; K31.7 Polyp of stomach and duodenum; I10 Essential (primary) hypertension; J44.9 Chronic obstructive pulmonary disease, unspecified; G47.30 Sleep apnea, unspecified; G47.00 Insomnia, unspecified; F41.9 Anxiety disorder, unspecified; E66.9 Obesity, unspecified; Z88.8 Allergy status to other drugs, medicaments and biological substances; Z99.89 Dependence on other enabling machines and devices; Z79.899 Other long term (current) drug therapy; Z68.34 Body mass index [BMI] 34.0-34.9, adult
CPT/HCPCS: 43239; 88305; 88312; J2001; J2250; J2704; J3490; J7120; 00731

== ENCOUNTER 2020-03-19 14:32 | Emergency (ER) | payer BC ==
[2020-03-19] MEDS ORDERED: Sodium Chloride 0.9% 2.5 ML Syringe FLUSH PRN (14:37)
[2020-03-19] MEDS ORDERED: Sodium Chloride 0.9% 10 ML Syringe FLUSH PRN (14:37)
[2020-03-19] MEDS ORDERED: Aspirin 81 MG Tab.Chew PO ONE (14:43)
--- NOTE | 2020-03-19 14:48 | EDM.PDOC ---
ED HPI GENERAL MEDICAL PROBLEM - General Chief Complaint: Chest Pain Stated Complaint: CHEST PAIN Time Seen by Provider: 03/19/20 14:45 Source of Information: Reports: Patient, Old Records History Limitations: Reports: No Limitations - History of Present Illness INITIAL COMMENTS - FREE TEXT/NARRATIVE: This is a 54-year-old male the past medical history of hypertension, GERD, barrera creatitis, esophagitis presenting with chest pain. About 1 hour prior to arrival, the patient was hunting deer and he was loading a deer into his truck when he developed sudden onset substernal chest pressure radiating to the right scapula. Nothing makes it better or worse. He has never had chest pain like this before. He describes it as "pressure". Rates it as 5 out of 10. This was accompanied by diaphoresis, but no nausea or vomiting. He also complains of some mild shortness of breath. No self treatment prior to arrival. Denies any recent fever, cough, hemoptysis. Patient denies history of venous thromboembolism, lower extremity pain or swelling, hemoptysis, recent surgery or immobilization or long travel, history of active malignancy, or hormonal medication/product usage. Of note, the patient was concerned that he may have had COVID over the past 2 weeks or so so he had self quarantined at home but did not actually take a COVID test. ROS: A 10-point review of systems was negative, except as noted in the HPI (or in the ROS section of this note). Past medical history: Reviewed, no additional pertinent history. Surgical history: Reviewed in system, no additional pertinent history. Social history: Reviewed in system, no additional pertinent history. Family history: Reviewed in system, no additional pertinent history. PHYSICAL EXAM Vital signs reviewed. Nursing notes reviewed. Constitutional: Awake, alert, non-distressed. Head: Normocephalic, atraumatic. Eyes: EOMI, conjunctiva normal, no discharge, no scleral icterus. Ears, Nose, Throat: External ears and nose normal, moist oral mucosa. Cardiovascular: 2+ radial pulses bilaterally, capillary refill less than 2 seconds. No lower extremity edema. Pulmonary: normal work of breathing, no accessory muscle use. Abdomen/GI: Soft, nontender, nondistended, no guarding or rigidity, no masses. Musculoskeletal: No deformities. Integumentary: Appropriate color for ethnicity, warm, dry, no pallor or jaundice, no rash. Neurologic: Alert, answering questions appropriately, normal speech, no facial droop, moving all extremities well. Psychiatric: Appropriate mood and affect, normal thought process. This patient was seen and evaluated during the 2019 SARS-CoV-2 novel coronavirus pandemic period. Community viral transmission is ongoing at time of this encounter and the emergency department is operating under pandemic response procedures. Chest Pain Score (Numeric/FACES): 7 - Related Data Allergies Allergy/AdvReac Type Severity Reaction Status Date / Time trimethobenzamide Allergy Cannot Verified 03/19/20 16:16 [From Tigan] Remember Home Meds: Home Meds Pantoprazole Sodium [Protonix] 40 mg PO DAILY 11/19/19 [History] amLODIPine Besylate [Amlodipine Besylate] 5 mg PO QAM 11/19/19 [History] Past Medical History HEENT History: Reports: None Cardiovascular History: Reports: Hypertension Other Cardiovascular History: states has a "leaky valve" Respiratory History: Reports: COPD (mild), Sleep Apnea Other Respiratory History: uses CPAP until 2 months ago- said his sleeping improved so he quit using it Gastrointestinal History: Reports: GERD Other Gastrointestinal History: esophagitis, diarrhea and abd pain Genitourinary History: Reports: None Musculoskeletal History: Reports: None Neurological History: Reports: None Psychiatric History: Reports: Anxiety Endocrine/Metabolic History: Reports: Obesity/BMI 30+ Hematologic History: Reports: None Immunologic History: Reports: None Oncologic (Cancer) History: Reports: None Dermatologic History: Reports: None - Infectious Disease History Infectious Disease History: Reports: Chicken Pox - Past Surgical History Head Surgeries/Procedures: Reports: None HEENT Surgical History: Reports: Myringotomy w Tube(s) GI Surgical History: Reports: EGD (a year ago) Social & Family History - Family History Family Medical History: No Pertinent Family History - Caffeine Use Caffeine Use: Reports: Coffee, Tea ED ROS GENERAL - Review of Systems Review Of Systems: See Below ED EXAM, GENERAL - Physical Exam Exam: See Below ED ULTRASOUND - Cardiac Indication: other (Chest pain) Exam type: focused transthoracic Findings: normal wall motion Impression: normal exam Images archived: No Cardiac US Text: No RWMA, no pericardial effusion, no grossly decreased LV function. #1 Interpretation EKG Interpretation Comments: 12-Lead ECG Interpretation Acquired: 2:36 PM Rhythm: Sinus rhythm Rate: 70 bpm [place]: Normal Intervals: Normal Ectopy: None RV Strain: No obvious RV strain pattern. ST Segments/T-Waves: No notable changes Acute Ischemic Changes: None apparent. Minimal ST elevation in V2 and V3, nondiagnostic and within normal limits for age. Interpretation: No STEMI. #2 Interpretation EKG Interpretation Comments: 12-Lead ECG Interpretation Acquired: 3:31 PM Rhythm: Sinus rhythm Rate: 85 bpm [place]: Normal Intervals: Normal Ectopy: None RV Strain: No obvious RV strain pattern. ST Segments/T-Waves: No notable changes Acute Ischemic Changes: Questionable ST segment elevation in leads V5 and 6 although there is wandering baseline. We will repeat the ECG. Interpretation: No convincing STEMI #3 Interpretation EKG Interpretation Comments: 12-Lead ECG Interpretation Acquired: 4:13 PM Rhythm: Sinus rhythm Rate: 72 bpm [place]: Normal Intervals: Normal Ectopy: None RV Strain: No obvious RV strain pattern. ST Segments/T-Waves: No notable changes Acute Ischemic Changes: None apparent. No evolving changes from first 2 ECGs. Interpretation: No STEMI Course - Vital Signs Text/Narrative:: 60-year-old male presenting with substernal chest pain and diaphoresis. On arrival mildly hypertensive. Differential diagnosis includes but is not limited to: ACS, pulmonary embolism, aortic dissection, acute systolic heart failure, pneumonia, pneumothorax, pericardial effusion, pleural effusion, pericarditis, endocarditis, esophageal rupture, GERD, drug-induced chest pain, chest wall pain, and many others. Initial twelve-lead EKG nondiagnostic, shows no obvious ischemic pattern. Given full dose aspirin. IV access established and labs were sent off. Initial labs show leukocytosis to 14.01, normal platelets. Mild hypokalemia at 3.3. Creatinine is mildly elevated at 1.4. Glucose 116. Troponin is elevated 0.083, diagnostic for NSTEMI. 1554: We repeated a twelve-lead EKG at 3:31 PM. This shows questionable evolving ST segment elevation in the lateral leads, we will plan to repeat this. I spoke with Dr. Torres at [facility] who is the accepting physician. We will get a CT angiogram of the aorta to rule out aortic dissection. Patient will go for CT scan and will get a third EKG when he returns. We are going to s tart him on a heparin and nitroglycerin drip. He does not have a clear STEMI at this point but he does have concerning persistent anginal pain and we are going to closely monitor him. No indication for systemic thrombolysis or Director Chemistry activation at this exact moment. 1617: Patient back from CT angiogram. Waiting for images to load. Ordered nitroglycerin and heparin. We obtained a third twelve-lead EKG which does not look different from the second. No evolving or worsening changes. We are trying to obtain air ambulance transport to [facility]. 1626: I reviewed the CT aortogram of the chest abdomen pelvis. No obvious aortic dissection, no obvious large PE. We are going to start the heparin infusion. We are still trying to arrange air ambulance transport to [facility]. Ordered high-dose statin as well. Limited bedside [id number] cardiac ultrasound shows no gross regional wall motion abnormality, no pericardial effusion, grossly normal left ventricular function. 1721: Air ambulance crews arrived to transport the patient to [facility]. CTA negative for dissection. Verbal report given and care transferred. Last Recorded V/S: Last Vital Signs Temp Pulse 88 03/19/20 14:37 Resp 18 03/19/20 14:37 BP 136/92 H 03/19/20 16:54 Pulse Ox 99 03/19/20 14:37 - Orders/Labs/Meds Orders: Active Orders 24 hr Category Date Time Status EKG 12 Lead [EKG Documentation Completion] [RC] STAT Care 03/19/20 14:58 Active EKG 12 Lead [EKG Documentation Completion] [RC] STAT Care 03/19/20 15:26 Active EKG Documentation Completion [RC] STAT Care 03/19/20 14:37 Active TROPONIN I [CHEM] Routine Lab 03/19/20 17:38 Ordered Heparin Sod,Pork In 0.45% Nacl [Heparin-1/2Ns 25,000 Med 03/19/20 16:00 Active Units/500] 25,000 unit in 500 ml IV TITRATE Nitroglycerin/D5W [Nitroglycerin 25 MG/D5W 250 ML] Med 03/19/20 15:45 Active 25 mg in 250 ml IV TITRATE Sodium Chloride 0.9% [Saline Flush] Med 03/19/20 14:37 Active 10 ml FLUSH ASDIRECTED PRN Sodium Chloride 0.9% [Saline Flush] Med 03/19/20 14:37 Active 2.5 ml FLUSH ASDIRECTED PRN Saline Lock Insert [OM.PC] Stat Oth 03/19/20 14:37 Ordered Medication Orders Nitroglycerin/Dextrose (Nitroglycerin 25 Mg/D5w 250 Ml) 25 mg in 250 mls @ 15 mls/hr IV TITRATE PB; Protocol Last Admin: 03/19/20 16:45 Dose: 25 mcg/min, 15 mls/hr Documented by: RUBI Heparin Sodium/Sodium Chloride (Heparin-1/2ns 25,000 Units/500) 25,000 unit in 500 mls @ 20.88 mls/hr IV TITRATE PB; Protocol Last Admin: 03/19/20 16:38 Dose: 9 units/kg/hr, 20.88 mls/hr Documented by: RUBI Cosigned by: JANAK Sodium Chloride (Saline Flush) 10 ml FLUSH ASDIRECTED PRN PRN Reason: Keep Vein Open Last Admin: 03/19/20 14:49 Dose: 10 ml Documented by: JANAK Sodium Chloride (Saline Flush) 2.5 ml FLUSH ASDIRECTED PRN PRN Reason: Keep Vein Open Last Admin: 03/19/20 14:49 Dose: 2.5 ml Documented by: JANAK Labs: Laboratory Tests 03/19/20 03/19/20 03/19/20 Range/Units 14:38 14:38 14:38 WBC 14.01 H (4.0-11.0) K/uL RBC 5.83 (4.50-5.90) M/uL Hgb 17.0 (13.0-17.0) g/dL Hct 49.6 (38.0-50.0) % MCV 85.1 (80.0-98.0) fL MCH 29.2 (27.0-32.0) pg MCHC 34.3 (31.0-37.0) g/dL RDW Std Deviation 38.9 (28.0-62.0) fl RDW Coeff of Nallely 13 (11.0-15.0) % Plt Count 319 (150-400) K/uL MPV 12.10 H (7.40-12.00) fL Neut % (Auto) 77.0 (48.0-80.0) % Lymph % (Auto) 12.6 L (16.0-40.0) % [place] % (Auto) 9.1 (0.0-15.0) % Eos % (Auto) 0.9 (0.0-7.0) % Baso % (Auto) 0.4 (0.0-1.5) % Neut # (Auto) 10.8 H (1.4-5.7) K/uL Lymph # (Auto) 1.8 (0.6-2.4) K/uL [place] # (Auto) 1.3 H (0.0-0.8) K/uL Eos # (Auto) 0.1 (0.0-0.7) K/uL Baso # (Auto) 0.1 (0.0-0.1) K/uL Nucleated RBC % 0.0 /100WBC Nucleated RBCs # 0 K/uL APTT 23.3 (18.6-31.3) SEC Sodium 141 (136-148) mmol/L Potassium 3.3 L (3.5-5.1) mmol/L Chloride 103 (98-107) mmol/L Carbon Dioxide 27.4 (21.0-32.0) mmol/L BUN 12 (7.0-18.0) mg/dL Creatinine 1.4 H (0.8-1.3) mg/dL Est Cr Clr Drug Dosing TNP Estimated GFR (MDRD) 53.2 ml/min Glucose 116 H (74-106) mg/dL Calcium 9.5 (8.5-10.1) mg/dL Total Bilirubin 2.0 H (0.2-1.0) mg/dL AST 48 H (15-37) IU/L ALT 84 H (14-63) IU/L Alkaline Phosphatase 85 (46-116) U/L Troponin I 0.083 H* (0.000-0.056) ng/mL B-Natriuretic Peptide (<100) PG/ML Total Protein 7.9 (6.4-8.2) g/dL Albumin 4.1 (3.4-5.0) g/dL Globulin 3.8 (2.6-4.0) g/dL Albumin/Globulin Ratio 1.1 (0.9-1.6) SARS CoV-2 RNA Rapid CRISTINA (NEGATIVE) 03/19/20 03/19/20 Range/Units 14:38 15:33 WBC (4.0-11.0) K/uL RBC (4.50-5.90) M/uL Hgb (13.0-17.0) g/dL Hct (38.0-50.0) % MCV (80.0-98.0) fL MCH (27.0-32.0) pg MCHC (31.0-37.0) g/dL RDW Std Deviation (28.0-62.0) fl RDW Coeff of Nallely (11.0-15.0) % Plt Count (150-400) K/uL MPV (7.40-12.00) fL Neut % (Auto) (48.0-80.0) % Lymph % (Auto) (16.0-40.0) % [place] % (Auto) (0.0-15.0) % Eos % (Auto) (0.0-7.0) % Baso % (Auto) (0.0-1.5) % Neut # (Auto) (1.4-5.7) K/uL Lymph # (Auto) (0.6-2.4) K/uL [place] # (Auto) (0.0-0.8) K/uL Eos # (Auto) (0.0-0.7) K/uL Baso # (Auto) (0.0-0.1) K/uL Nucleated RBC % /100WBC Nucleated RBCs # K/uL APTT (18.6-31.3) SEC Sodium (136-148) mmol/L Potassium (3.5-5.1) mmol/L Chloride (98-107) mmol/L Carbon Dioxide (21.0-32.0) mmol/L BUN (7.0-18.0) mg/dL Creatinine (0.8-1.3) mg/dL Est Cr Clr Drug Dosing Estimated GFR (MDRD) ml/min Glucose (74-106) mg/dL Calcium (8.5-10.1) mg/dL Total Bilirubin (0.2-1.0) mg/dL AST (15-37) IU/L ALT (14-63) IU/L Alkaline Phosphatase (46-116) U/L Troponin I (0.000-0.056) ng/mL B-Natriuretic Peptide 16 (<100) PG/ML Total Protein (6.4-8.2) g/dL Albumin (3.4-5.0) g/dL Globulin (2.6-4.0) g/dL Albumin/Globulin Ratio (0.9-1.6) SARS CoV-2 RNA Rapid CRISTINA POSITIVE H (NEGATIVE) Meds: Medications Generic Name Dose Route Start Last Admin Trade Name Freq PRN Reason Stop Dose Admin Nitroglycerin/Dextrose 25 mg in 250 mls @ 15 mls/hr 03/19/20 15:45 03/19/20 16:45 Nitroglycerin 25 Mg/D5w 250 Ml IV 25 mcg/min TITRATE PB 15 mls/hr Administration Protocol 25 MCG/MIN Heparin Sodium/Sodium Chloride 25,000 unit in 500 mls @ 20.88 mls/hr 03/19/20 16:00 03/19/20 16:38 Heparin-1/2ns 25,000 Units/500 IV 9 units/kg/hr TITRATE PB 20.88 mls/hr Administration Protocol 9 UNITS/KG/HR Sodium Chloride 10 ml 03/19/20 14:37 03/19/20 14:49 Saline Flush FLUSH 10 ml ASDIRECTED PRN Administration Keep Vein Open Sodium Chloride 2.5 ml 03/19/20 14:37 03/19/20 14:49 Saline Flush FLUSH 2.5 ml ASDIRECTED PRN Administration Keep Vein Open Discontinued Medications Generic Name Dose Route Start Last Admin Trade Name Freq PRN Reason Stop Dose Admin Aspirin 324 mg 03/19/20 14:43 03/19/20 14:49 Aspirin PO 03/19/20 14:44 324 mg ONETIME ONE Administration Atorvastatin Calcium 80 mg 03/19/20 16:43 03/19/20 16:59 Lipitor PO 03/19/20 16:44 80 mg ONETIME ONE Administration Atorvastatin Calcium Confirm 03/19/20 17:03 Lipitor Administered 03/19/20 17:04 Dose 40 mg .ROUTE .STK-MED ONE Fentanyl 100 mcg 03/19/20 16:32 Fentanyl IVPUSH 03/19/20 16:33 ONETIME ONE Heparin Sodium (Porcine) 5,000 units 03/19/20 15:47 03/19/20 16:33 Heparin Sodium IVPUSH 03/19/20 15:48 5,000 units .BOLUS ONE Administration Iopamidol 100 ml 03/19/20 16:20 03/19/20 16:21 Isovue Multipack-370 (76%) IVPUSH 03/19/20 16:21 100 ml ONETIME ONE Administration Nitroglycerin 0.4 mg 03/19/20 14:43 03/19/20 15:07 Nitrostat SL 0.4 mg Q5M PRN Administration Chest Pain Departure - Departure Time of Disposition: 15:52 Disposition: DC/Tfer to [facility] 02 Reason for Transfer *Q: Other (Cardiology services) Condition: Good Clinical Impression: NSTEMI (non-ST elevated myocardial infarction) Referrals: Brenton Penaloza MD [Primary Care Provider] - Forms: ED Department Discharge Critical Care Note - Critical Care Note Total Time (mins): 45 Comments: Critical care time is exclusive of billable procedures and the time to perform these procedures. Critical care time was used to prevent vital system organ failure and deterioration. Critical care time includes bedside management and high-complexity decision making requiring my highest level of mental preparedness and attention. This includes reviewing the patient's chart and prior medical records, ordering and reviewing interpreting laboratory studies and imaging results, interpretation of vital signs and EKG, pulse oximetry, and discussion with the admitting team or accepting facility, discussions with EMS and nursing staff, and discussions with any family members if available. NSTEMI with elevated troponin. Serial EKGs, air ambulance activation, transport to higher level of care, heparin infusion, nitroglycerin infusion, statin, aspirin. Sepsis Event Note (ED) - Focused Exam Vital Signs: Vital Signs Pulse Resp BP BP Pulse Ox 03/19/20 16:54 136/92 H 03/19/20 15:07 129/86 03/19/20 15:02 163/85 H 03/19/20 14:56 149/85 H 03/19/20 14:37 88 18 165/100 H 99 - My Orders Last 24 Hours: My Active Orders 03/19/20 14:58 EKG 12 Lead [EKG Documentation Completion] [RC] STAT 03/19/20 15:26 EKG 12 Lead [EKG Documentation Completion] [RC] STAT 03/19/20 15:45 Nitroglycerin/D5W [Nitroglycerin 25 MG/D5W 250 ML] 25 mg in 250 ml IV TITRATE 03/19/20 16:00 Heparin Sod,Pork In 0.45% Nacl [Heparin-1/2Ns 25,000 Units/500] 25,000 unit in 500 ml IV TITRATE 03/19/20 17:38 TROPONIN I [CHEM] Routine - Assessment/Plan Last 24 Hours: My Active Orders 03/19/20 14:58 EKG 12 Lead [EKG Documentation Completion] [RC] STAT 03/19/20 15:26 EKG 12 Lead [EKG Documentation Completion] [RC] STAT 03/19/20 15:45 Nitroglycerin/D5W [Nitroglycerin 25 MG/D5W 250 ML] 25 mg in 250 ml IV TITRATE 03/19/20 16:00 Heparin Sod,Pork In 0.45% Nacl [Heparin-1/2Ns 25,000 Units/500] 25,000 unit in 500 ml IV TITRATE 03/19/20 17:38 TROPONIN I [CHEM] Routine
[2020-03-19] MEDS: Nitroglycerin 0.4 MG Tab.SL SL PRN ×3 (14:56→15:07)
[2020-03-19 15:14] LABS: BLOOD UREA NITROGEN,BUN 12 mg/dL (7.0-18.0); CARBON DIOXIDE,CO2 27.4 mmol/L (21.0-32.0); CHLORIDE,CL 103 mmol/L (98-107); GLUCOSE RANDOM 116 mg/dL (74-106); POTASSIUM,K 3.3 mmol/L (3.5-5.1); SODIUM,NA 141 mmol/L (136-148)
[2020-03-19] MEDS ORDERED: Nitroglycerin/D5W 25 MG/250 ML BOTTLE IV SCH (15:45)
--- NOTE | 2020-03-19 15:45 | CR ---
INDICATION: Chest pain TECHNIQUE: Chest 1 view COMPARISON: June 02, 2017 FINDINGS: Cardiovascular and mediastinum: Heart size and vasculature are normal in caliber and appearance. Lungs and pleural spaces: Lungs are clear. No sign of infiltrate or mass. No sign of pleural effusion. No pneumothorax. Bones and soft tissues: No significant findings. IMPRESSION: No acute findings and no significant changes from the prior exam. Dictated by Lan Wilkes MD @ Mar 19 2020 3:43PM Signed by Dr. Lan Wilkes @ Mar 19 2020 3:44PM
[2020-03-19] MEDS ORDERED: Heparin Sodium 5,000 Units/ML Vial IVPUSH ONE (15:47)
[2020-03-19] MEDS ORDERED: Heparin Sod,Pork In 0.45% Nacl 25,000 UNIT/500 ML IV.SOLN IV SCH (16:00)
[2020-03-19] MEDS ORDERED: Iopamidol 755 MG/ML 500 ML Multipack Bottle IVPUSH ONE (16:20)
[2020-03-19] MEDS ORDERED: fentaNYL 50 MCG/ML SDV IVPUSH ONE (16:32)
[2020-03-19] MEDS ORDERED: atorvaSTATin 40 MG Tab PO ONE (16:43)
[2020-03-19] MEDS ORDERED: atorvaSTATin 40 MG Tab ONE (17:03)
--- NOTE | 2020-03-19 17:15 | CT ---
INDICATION: Pt w/chest pain, r/o dissection TECHNIQUE: CT chest, abdomen and pelvis acquired with IV contrast, dissection protocol. COMPARISON: None. FINDINGS: CHEST: Cardiovascular structures: The entire aorta is normal in caliber and there is no sign of aortic dissection. Heart size is normal. Mediastinum and margot: No mass or adenopathy. Lungs and pleura: Lungs are clear. No pleural effusions. Chest wall and axilla: No mass or adenopathy. Bones: Unremarkable for age. ABDOMEN AND PELVIS: Liver: Unremarkable. Gallbladder and bile ducts: Unremarkable. Pancreas: Unremarkable. Spleen: Unremarkable. Adrenal glands: Unremarkable. Kidneys: Unremarkable. GI tract: Unremarkable. Vascular structures: Unremarkable. Lymph nodes: Unremarkable. Miscellaneous: Unremarkable. No free air or significant free fluid. Bones: L5 pars defects. IMPRESSION: No evidence of aortic dissection. Chronic bilateral L5 pars defects. Please note that all CT scans at this facility use dose modulation, iterative reconstruction, and/or weight-based dosing when appropriate to reduce radiation dose to as low as reasonably achievable. Dictated by Lan Wilkes MD @ Mar 19 2020 5:04PM Signed by Dr. Lan Wilkes @ Mar 19 2020 5:13PM
--- NOTE | 2020-03-19 17:15 | CT ---
INDICATION: Pt w/chest pain, r/o dissection TECHNIQUE: CT chest, abdomen and pelvis acquired with IV contrast, dissection protocol. COMPARISON: None. FINDINGS: CHEST: Cardiovascular structures: The entire aorta is normal in caliber and there is no sign of aortic dissection. Heart size is normal. Mediastinum and margot: No mass or adenopathy. Lungs and pleura: Lungs are clear. No pleural effusions. Chest wall and axilla: No mass or adenopathy. Bones: Unremarkable for age. ABDOMEN AND PELVIS: Liver: Unremarkable. Gallbladder and bile ducts: Unremarkable. Pancreas: Unremarkable. Spleen: Unremarkable. Adrenal glands: Unremarkable. Kidneys: Unremarkable. GI tract: Unremarkable. Vascular structures: Unremarkable. Lymph nodes: Unremarkable. Miscellaneous: Unremarkable. No free air or significant free fluid. Bones: L5 pars defects. IMPRESSION: No evidence of aortic dissection. Chronic bilateral L5 pars defects. Please note that all CT scans at this facility use dose modulation, iterative reconstruction, and/or weight-based dosing when appropriate to reduce radiation dose to as low as reasonably achievable. Dictated by Lan Wilkes MD @ Mar 19 2020 5:13PM Signed by Dr. Lan Wilkes @ Mar 19 2020 5:14PM
== END 2020-03-19 17:26 ==
LOC: MW.ED 14:32
DX: I21.4 Non-ST elevation (NSTEMI) myocardial infarction (principal); U07.1 COVID-19; I10 Essential (primary) hypertension; J44.9 Chronic obstructive pulmonary disease, unspecified; K21.9 Gastro-esophageal reflux disease without esophagitis; E66.9 Obesity, unspecified; Z68.36 Body mass index [BMI] 36.0-36.9, adult; Z88.8 Allergy status to other drugs, medicaments and biological substances
CPT/HCPCS: 36415; 71045; 71275; 74175; 80053; 83880; 84484; 85025; 85730; 87635; 93005; 96365; 96368; 99291; A9270; J1644; J3490; Q9967; 93010; 99284; U0002

== ENCOUNTER 2020-03-30 16:20 | Emergency (ER) | payer BC ==
--- NOTE | 2020-03-30 19:11 | US ---
INDICATION: Recent catheterization. Swelling at right radial area TECHNIQUE: Ultrasound venous duplex upper right extremity. Compression venous exam was performed using espinoza-scale, color Doppler, and spectral Doppler imaging. COMPARISON: None available FINDINGS: The right internal jugular, subclavian, and axillary veins are patent with normal waveforms. The brachial, basilic, and cephalic veins are fully compressible. The visualized radial and ulnar veins are patent and compressible. No soft tissue abnormalities seen. IMPRESSION: No sonographic evidence of a deep venous thrombosis in the right upper extremity. Dictated by Obdulio Caraballo MD @ Mar 30 2020 7:05PM Signed by Dr. Obdulio Caraballo @ Mar 30 2020 7:10PM
--- NOTE | 2020-03-30 19:17 | US ---
DUPLEX ARTERIAL ULTRASOUND RIGHT UPPER EXTREMITY CLINICAL HISTORY: 54-year-old with history of recent catheterization now with swelling and pain at right wrist. Concern for possible arterial injury. COMPARISON: None available. TECHNIQUE: The lower/upper extremity arteries were examined per exam specific protocol with espinoza-scale ultrasound, color-flow and Doppler spectral analysis. Peak systolic velocities (PSV), Doppler waveform quality and Velocity Ratios if applicable, were documented at sites per exam specific protocol. FINDINGS: The distal right radial artery is occluded which may be iatrogenic in nature. The occlusion is at the level of the wrist and extends about 4 cm proximally. The right common carotid, subclavian, axillary, brachial, ulnar, and proximal radial artery are otherwise widely patent. Multiphasic waveforms are seen throughout. IMPRESSION: Distal right radial artery occlusion which may be iatrogenic in nature. Occlusion extends approximately 4 cm proximally from the wrist. TOSHIA PUENTES M.D. Vascular and Interventional Radiology Transcribed: 9:56 a.m. [email or web address] RJ/Dictated by: Toshia Puentes MD @ 03/31/2020 9:20:00 AM (Electronically Signed)
[2020-03-30] MEDS ORDERED: Apixaban 5 MG Tab PO ONE (19:18)
--- NOTE | 2020-03-30 19:23 | EDM.PDOC ---
ED HPI GENERAL MEDICAL PROBLEM - General Chief Complaint: Upper Extremity Injury/Pain Stated Complaint: POSSIBLE BLOOD CLOT Time Seen by Provider: 03/30/20 16:23 - History of Present Illness INITIAL COMMENTS - FREE TEXT/NARRATIVE: CHIEF COMPLAINT(S): Right forearm pain HISTORY OF PRESENT ILLNESS: This is a 54-year-old man with a past medical history of recent catheterization through right radial artery who comes to the emergency department with a chief complaint of right forearm pain. The patient states that he had a cardiac catheterization approximately 9 days ago. He states that he was discharged and he came home. He states that for the last 2 days he has been experiencing pain and some swelling near the catheterization site. He denies any numbness, tingling, weakness or pain in his hand. He states that he is able to move his hand. He denies any other symptoms such as chest pain or shortness of breath. REVIEW OF SYSTEMS: Constitutional: Denies fever, chills. Eyes: Denies eye pain Ears, Nose, Mouth, & Throat: Denies earache Cardiovascular: Denies chest pain Respiratory: Denies shortness of breath Gastrointestinal: Denies Nausea, vomiting, diarrhea, hematochezia. Genitourinary: Denies hematuria MSK: Positive for right forearm pain Neurological: Denies blurred vision Psychiatric: Denies depression PAST MEDICAL HISTORY: As per history of present illness and as reviewed below otherwise noncontributory. SURGICAL HISTORY: As per history of present illness and as reviewed below otherwise noncontributory. SOCIAL HISTORY: As per history of present illness and as reviewed below otherwise noncontributory. FAMILY HISTORY: As per history of present illness and as reviewed below otherwise noncontributory. EXAMINATION OF ORGAN SYSTEMS/BODY AREAS: Constitutional: Blood pressure is 154/87, heart rate 68, respiratory rate 18 with an oxygen saturation 97% on room air. Temperature 36.4 General: Overall well-appearing man who is in no acute distress Psychiatric: Appropriate mood and affect. Eyes: No scleral icterus or conjunctival erythema ENMT: Moist mucous membranes. No pharyngeal erythema Cardiovascular: Regular, rate, and rythym. No gallops, murmurs, or rubs. The patient has some swelling located near his catheter site with a palpable pulse near the wrist. There is no pulse palpable over the catheterization site. There is a strong ulnar pulse on the right Respiratory: Lungs clear to auscultation bilaterally. No wheezes, rales, or rhonchi. Gastrointestinal: Soft, non-tender, non-distended. Normoactive bowel sounds Genitourinary: No suprapubic tenderness Musculoskeletal: Normal range of motion of the right hand Skin: No lesions or abrasions. Neurological: Alert, GCS 15 strength and sensation of distal right upper extremity intact. MEDICAL DECISION MAKING AND COURSE IN THE ED WITH INTERPRETATION/REVIEW OF DIAGNOSTIC STUDIES: This is a 54-year-old man and with a recent left heart catheterization through right radial artery who comes to the emergency department with pain and swelling in his left forearm with decreased pulses over the catheterization site and minimal swelling who is neurovascularly intact distally. At this time I am concerned about the possibility of DVT, pseudoaneurysm, versus arterial occlusion. Patient does have collateral flow therefore will I will obtain a venous duplex and a arterial duplex of the right upper extremity. I do believe any other labs or imaging are indicated at this time. The patient's pain is tolerable therefore no pain medication was administered. The radiological images were viewed by myself along with reading the report from the radiologist. Venous duplex of the right upper extremity does not reveal any evidence of DVT. Arterial duplex of the right upper extremity reveals an occlusion of the distal right radial artery. The remainder of the radial artery and other right upper extremity arterial structures are patent. No evidence of pseudoaneurysm. After imaging I did discuss the results with the patient. I discussed with him I like to talk to his exhaust emissions automotive technician at [facility]. I contacted [facility] and spoke with Dr. Melchor who spoke with Dr. Newton regarding the findings and the patient. They stated that this can be seen sometimes after catheterization but is rare. Given that he is neurovascularly intact they recommend starting the patient on Eliquis 5 mg twice daily and to use warm and cold compresses for symptomatic relief. They recommended his normal follow-up on March 07, 2020. They also recommend returning to the emergency department if he has any decrease in sensation, cold/espinoza hand, or decrease in movement. I did discuss this with the patient. He was amenable to this plan. He was given strict return precautions and provided with his first dose of Eliquis here in the emergency department. DISPOSITION: The patient was discharged home in stable condition. The patient will follow up with his exhaust emissions automotive technician on March 07, 2020 CONDITION: Fair PROCEDURES: None FINAL IMPRESSION(S)/DIAGNOSES: 1. Acute left distal radial artery occlusion secondary to left heart catheterization Edison Cronin M.D. Right Wrist Pain Score (Numeric/FACES): 5 - Related Data Allergies Allergy/AdvReac Type Severity Reaction Status Date / Time trimethobenzamide Allergy Cannot Verified 03/30/20 16:47 [From Tigan] Remember Home Meds: Home Meds amLODIPine Besylate [Amlodipine Besylate] 5 mg PO QAM 11/19/19 [History] Apixaban [Eliquis] 5 mg PO BID #60 tablet 03/30/20 [Rx] Aspirin 03/30/20 [History] Clopidogrel [Plavix] 03/30/20 [History] Isosorbide Mononitrate [Imdur] 03/30/20 [History] Past Medical History HEENT History: Reports: None Cardiovascular History: Reports: Hypertension, [place] Other Cardiovascular History: states has a "leaky valve" Respiratory History: Reports: COPD, Sleep Apnea Other Respiratory History: uses CPAP until 2 months ago- said his sleeping improved so he quit using it Gastrointestinal History: Reports: GERD Other Gastrointestinal History: esophagitis, diarrhea and abd pain Genitourinary History: Reports: None Musculoskeletal History: Reports: None Neurological History: Reports: None Psychiatric History: Reports: Anxiety Endocrine/Metabolic History: Reports: Obesity/BMI 30+ Hematologic History: Reports: None Immunologic History: Reports: None Oncologic (Cancer) History: Reports: None Dermatologic History: Reports: None - Infectious Disease History Infectious Disease History: Reports: Chicken Pox - Past Surgical History Head Surgeries/Procedures: Reports: None HEENT Surgical History: Reports: Myringotomy w Tube(s) GI Surgical History: Reports: EGD Social & Family History - Family History Family Medical History: No Pertinent Family History - Tobacco Use Tobacco Use Status *Q: Never Tobacco User Second Hand Smoke Exposure: No - Caffeine Use Caffeine Use: Reports: Coffee - Recreational Drug Use Recreational Drug Use: No Review of Systems - Review of Systems Review Of Systems: See Below ED EXAM, GENERAL - Physical Exam Exam: See Below Course - Vital Signs Last Recorded V/S: Last Vital Signs Temp 36.4 C 03/30/20 16:31 Pulse 65 03/30/20 18:50 Resp 20 03/30/20 18:50 BP 128/70 03/30/20 18:50 Pulse Ox 97 03/30/20 18:50 - Orders/Labs/Meds Meds: Medications Discontinued Medications Generic Name Dose Route Start Last Admin Trade Name Lazarus PRN Reason Stop Dose Admin Apixaban 5 mg 03/30/20 19:18 Eliquis PO 03/30/20 19:19 ONETIME ONE Departure - Departure Time of Disposition: 19:20 Disposition: Home, Self-Care 01 Condition: Fair Clinical Impression: Radial artery occlusion, right - Discharge Information *PRESCRIPTION DRUG MONITORING PROGRAM REVIEWED*: No *COPY OF PRESCRIPTION DRUG MONITORING REPORT IN PATIENT FARHAD: No Prescriptions: Apixaban [Eliquis] 5 mg PO BID #60 tablet Instructions: Radial Site Care Referrals: Brenton Penaloza MD [Primary Care Provider] - Forms: ED Department Discharge Additional Instructions: The patient is informed of any results of their evaluation and diagnostic workup and all questions are answered. They are given discharge instructions and return precautions. The patient is stable for discharge. The patient states they understand and agree with the plan and that they will return if their symptoms get worse or if they have any new concerns. The following information is given to patients seen in the emergency department who are being discharged to home. This information is to outline your options for follow-up care. We provide all patients seen in our emergency department with a follow-up referral. The need for follow-up, as well as the timing and circumstances, are variable depending upon the specifics of your emergency department visit. If you don't have a primary care physician on staff, we will provide you with a referral. We always advise you to contact your personal physician following an emergency department visit to inform them of the circumstance of the visit and for follow-up with them and/or the need for any referrals to a consulting specialist. The emergency department will also refer you to a specialist when appropriate. This referral assures that you have the opportunity for follow-up care with a specialist. All of these measure are taken in an effort to provide you with optimal care, which includes your follow-up. Under all circumstances we always encourage you to contact your private physician who remains a resource for coordinating your care. When calling for follow-up care, please make the office aware that this follow-up is from your recent emergency room visit. If for any reason you are refused follow-up, please contact the [facility] Emergency Department at and asked to speak to the emergency department charge nurse. You were evaluated on an emergency basis today. You do have a radial artery occlusion after catheterization with collateral flow. You have been started on Eliquis which you need to be taking twice a day. Please follow-up with your clinical program manager at your scheduled appointment. Return to the emergency department if you are to have any decreased sensation including numbness, decreased movement, or cold/espinoza hand. Please use warm and cold compresses for pain relief. Sepsis Event Note (ED) - Evaluation Sepsis Screening Result: No Definite Risk - Focused Exam Vital Signs: Vital Signs Temp Pulse Resp BP Pulse Ox 03/30/20 18:50 65 20 128/70 97 03/30/20 16:31 36.4 C 68 18 154/87 H 97
== END 2020-03-30 19:45 | disposition home or self-care (01) ==
LOC: MW.ED 16:20
DX: I70.8 Atherosclerosis of other arteries (principal); I10 Essential (primary) hypertension; I25.2 Old myocardial infarction; J44.9 Chronic obstructive pulmonary disease, unspecified; K21.9 Gastro-esophageal reflux disease without esophagitis; E66.9 Obesity, unspecified; Z68.34 Body mass index [BMI] 34.0-34.9, adult; Z95.5 Presence of coronary angioplasty implant and graft; Z88.8 Allergy status to other drugs, medicaments and biological substances
CPT/HCPCS: 93931; 93971; 99283; A9270

== ENCOUNTER 2020-06-19 12:49 | Emergency (ER) | payer BC ==
[2020-06-19] MEDS ORDERED: Sodium Chloride 0.9% 2.5 ML Syringe FLUSH PRN (13:04)
[2020-06-19] MEDS ORDERED: Famotidine 20 MG/2 ML SDV IVPUSH ONE (13:04)
[2020-06-19] MEDS ORDERED: Alum Hydrox/Mag Hydrox/Simeth 15 ML, Lidocaine 2% 5 ML PO ONE ×2 (13:04)
[2020-06-19] MEDS ORDERED: Sodium Chloride 0.9% 10 ML Syringe FLUSH PRN (13:04)
--- NOTE | 2020-06-19 13:07 | EDM.PDOC ---
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 Patient states that he has been having a substernal chest pain that feels like heartburn on and off over the last 10 weeks. He thinks it is improved by Tums. It is nonexertional. There is mild shortness of breath associated with the symptoms. Denies any nausea or vomiting. Nothing particularly worsened today, but he called his primary care provider and she recommended that he come to the emergency department for assessment considering his cardiac history. Patient notes that he is scheduled to go to [place] for a repeat cardiac catheterization in July (roughly 1 month). chest Pain Score (Numeric/FACES): 4 - Related Data Allergies Allergy/AdvReac Type Severity Reaction Status Date / Time trimethobenzamide Allergy Cannot Verified 06/19/20 13:00 [From [facility]] Remember Home Meds: Home Meds Aspirin 81 mg PO DAILY 03/30/20 [History] Clopidogrel [Plavix] 75 mg PO DAILY 03/30/20 [History] Isosorbide Mononitrate [Imdur] 30 mg PO DAILY 03/30/20 [History] Famotidine [Pepcid] 40 mg PO QPM 30 Days #30 tablet 06/19/20 [Rx] Rosuvastatin [Crestor] 20 mg PO DAILY 06/19/20 [History] Past Medical History HEENT History: Reports: None Cardiovascular History: Reports: Hypertension, [place] Other Cardiovascular History: states has a "leaky valve" Respiratory History: Reports: COPD, Sleep Apnea Other Respiratory History: uses CPAP until 2 months ago- said his sleeping improved so he quit using it Gastrointestinal History: Reports: GERD Other Gastrointestinal History: esophagitis, diarrhea and abd pain Genitourinary History: Reports: None Musculoskeletal History: Reports: None Neurological History: Reports: None Psychiatric History: Reports: Anxiety Endocrine/Metabolic History: Reports: Obesity/BMI 30+ Hematologic History: Reports: None Immunologic History: Reports: None Oncologic (Cancer) History: Reports: None Dermatologic History: Reports: None - Infectious Disease History Infectious Disease History: Reports: Chicken Pox - Past Surgical History Head Surgeries/Procedures: Reports: None HEENT Surgical History: Reports: Myringotomy w Tube(s) GI Surgical History: Reports: EGD Social & Family History - Family History Family Medical History: No Pertinent Family History - Caffeine Use Caffeine Use: Reports: Coffee ED ROS GENERAL - Review of Systems Review Of Systems: Comprehensive ROS is negative, except as noted in HPI. ED EXAM, GENERAL - Physical Exam Exam: See Below Exam Limited By: No Limitations General Appearance: Alert, WD/WN, No Apparent Distress Throat/Mouth: Normal Voice, No Airway Compromise Head: Atraumatic, Normocephalic Neck: Normal Inspection Respiratory/Chest: No Respiratory Distress, Lungs Clear, Normal Breath Sounds, No Accessory Muscle Use, Chest Non-Tender Cardiovascular: Normal Peripheral Pulses, No Edema, No Murmur, Bradycardia Extremities: Normal Inspection Neurological: Alert, Normal Gait Psychiatric: Normal Affect, Normal Mood Skin Exam: Warm, Dry, Intact, Normal Color #1 Interpretation EKG Date: 06/19/20 Time: 12:55 Rhythm: Other (sinus megan) Rate (Beats/Min): 51 [place]: Normal P-Wave: Present QRS: Normal ST-T: Normal QT: Normal FL/PQ Interval: 150 Comparison: NA - No Prior EKG EKG Interpretation Comments: non-ischemic Course - Vital Signs Last Recorded V/S: Last Vital Signs Temp 97.8 F 06/19/20 12:58 Pulse 58 L 06/19/20 12:58 Resp 16 06/19/20 12:58 BP 153/85 H 06/19/20 12:58 Pulse Ox 98 06/19/20 12:58 - Orders/Labs/Meds Orders: Active Orders 24 hr Category Date Time Status Cardiac Monitoring [RC] . DIRECTED Care 06/19/20 13:04 Active EKG Documentation Completion [RC] STAT Care 06/19/20 13:04 Active Pulse Oximetry [RC] ASDIRECTED Care 06/19/20 13:04 Active Sodium Chloride 0.9% [Saline Flush] Med 06/19/20 13:04 Active 10 ml FLUSH ASDIRECTED PRN Sodium Chloride 0.9% [Saline Flush] Med 06/19/20 13:04 Active 2.5 ml FLUSH ASDIRECTED PRN Saline Lock Insert [OM.PC] Stat Oth 06/19/20 13:04 Ordered Medication Orders Sodium Chloride (Saline Flush) 10 ml FLUSH ASDIRECTED PRN PRN Reason: Keep Vein Open Last Admin: 06/19/20 13:18 Dose: 10 ml Documented by: MELLISA Sodium Chloride (Saline Flush) 2.5 ml FLUSH ASDIRECTED PRN PRN Reason: Keep Vein Open Last Admin: 06/19/20 13:18 Dose: 2.5 ml Documented by: MELLISA Labs: Laboratory Tests 06/19/20 06/19/20 06/19/20 Range/Units 13:00 13:00 13:00 WBC 9.30 (4.0-11.0) K/uL RBC 5.26 (4.50-5.90) M/uL Hgb 15.5 (13.0-17.0) g/dL Hct 45.8 (38.0-50.0) % MCV 87.1 (80.0-98.0) fL MCH 29.5 (27.0-32.0) pg MCHC 33.8 (31.0-37.0) g/dL RDW Std Deviation 42.4 (28.0-62.0) fl RDW Coeff of Nallely 13 (11.0-15.0) % Plt Count 283 (150-400) K/uL MPV 11.90 (7.40-12.00) fL Neut % (Auto) 55.3 (48.0-80.0) % Lymph % (Auto) 30.6 (16.0-40.0) % Lander % (Auto) 7.1 (0.0-15.0) % Eos % (Auto) 6.1 (0.0-7.0) % Baso % (Auto) 0.9 (0.0-1.5) % Neut # (Auto) 5.1 (1.4-5.7) K/uL Lymph # (Auto) 2.9 H (0.6-2.4) K/uL Lander # (Auto) 0.7 (0.0-0.8) K/uL Eos # (Auto) 0.6 (0.0-0.7) K/uL Baso # (Auto) 0.1 (0.0-0.1) K/uL Nucleated RBC % 0.0 /100WBC Nucleated RBCs # 0 K/uL INR 0.98 APTT 25.7 (18.6-31.3) SEC Sodium 138 (136-148) mmol/L Potassium 3.5 (3.5-5.1) mmol/L Chloride 101 (98-107) mmol/L Carbon Dioxide 26.7 (21.0-32.0) mmol/L BUN 10 (7.0-18.0) mg/dL Creatinine 1.1 (0.8-1.3) mg/dL Est Cr Clr Drug Dosing 80.19 mL/min Estimated GFR (MDRD) > 60.0 ml/min Glucose 139 H (74-106) mg/dL Calcium 8.4 L (8.5-10.1) mg/dL Total Bilirubin 1.9 H (0.2-1.0) mg/dL AST 23 (15-37) IU/L ALT 37 (14-63) IU/L Alkaline Phosphatase 71 (46-116) U/L Troponin I < 0.050 (0.000-0.056) ng/mL B-Natriuretic Peptide (<100) PG/ML Total Protein 7.2 (6.4-8.2) g/dL Albumin 3.7 (3.4-5.0) g/dL Globulin 3.5 (2.6-4.0) g/dL Albumin/Globulin Ratio 1.1 (0.9-1.6) Lipase 191 (73-393) U/L 06/19/20 Range/Units 13:00 WBC (4.0-11.0) K/uL RBC (4.50-5.90) M/uL Hgb (13.0-17.0) g/dL Hct (38.0-50.0) % MCV (80.0-98.0) fL MCH (27.0-32.0) pg MCHC (31.0-37.0) g/dL RDW Std Deviation (28.0-62.0) fl RDW Coeff of Nallely (11.0-15.0) % Plt Count (150-400) K/uL MPV (7.40-12.00) fL Neut % (Auto) (48.0-80.0) % Lymph % (Auto) (16.0-40.0) % Lander % (Auto) (0.0-15.0) % Eos % (Auto) (0.0-7.0) % Baso % (Auto) (0.0-1.5) % Neut # (Auto) (1.4-5.7) K/uL Lymph # (Auto) (0.6-2.4) K/uL Lander # (Auto) (0.0-0.8) K/uL Eos # (Auto) (0.0-0.7) K/uL Baso # (Auto) (0.0-0.1) K/uL Nucleated RBC % /100WBC Nucleated RBCs # K/uL INR APTT (18.6-31.3) SEC Sodium (136-148) mmol/L Potassium (3.5-5.1) mmol/L Chloride (98-107) mmol/L Carbon Dioxide (21.0-32.0) mmol/L BUN (7.0-18.0) mg/dL Creatinine (0.8-1.3) mg/dL Est Cr Clr Drug Dosing mL/min Estimated GFR (MDRD) ml/min Glucose (74-106) mg/dL Calcium (8.5-10.1) mg/dL Total Bilirubin (0.2-1.0) mg/dL AST (15-37) IU/L ALT (14-63) IU/L Alkaline Phosphatase (46-116) U/L Troponin I (0.000-0.056) ng/mL B-Natriuretic Peptide 20 (<100) PG/ML Total Protein (6.4-8.2) g/dL Albumin (3.4-5.0) g/dL Globulin (2.6-4.0) g/dL Albumin/Globulin Ratio (0.9-1.6) Lipase (73-393) U/L Meds: Medications Generic Name Dose Route Start Last Admin Trade Name Freq PRN Reason Stop Dose Admin Sodium Chloride 10 ml 06/19/20 13:04 06/19/20 13:18 Saline Flush FLUSH 10 ml ASDIRECTED PRN Administration Keep Vein Open Sodium Chloride 2.5 ml 06/19/20 13:04 06/19/20 13:18 Saline Flush FLUSH 2.5 ml ASDIRECTED PRN Administration Keep Vein Open Discontinued Medications Generic Name Dose Route Start Last Admin Trade Name Lazarus PRN Reason Stop Dose Admin Aspirin 162 mg 06/20/20 13:06 Aspirin PO 06/20/20 13:07 ONETIME ONE Aspirin 162 mg 06/19/20 13:24 06/19/20 13:26 Aspirin PO 06/19/20 13:25 162 mg ONETIME ONE Administration Aspirin Confirm 06/19/20 13:25 Aspirin Administered 06/19/20 13:26 Dose 162 mg .ROUTE .STK-MED ONE Al Hydroxide/Mg Hydroxide 15 0 ml 06/19/20 13:04 06/19/20 13:17 ml/ Lidocaine HCl 5 ml PO 06/19/20 13:05 1 each ONETIME ONE Administration Famotidine 20 mg 06/19/20 13:04 06/19/20 13:17 Pepcid IVPUSH 06/19/20 13:05 20 mg ONETIME ONE Administration - Re-Assessments/Exams Free Text/Narrative Re-Assessment/Exam: 06/19/20 13:12 We will get a chest pain work-up labs, chest x-ray. Will give 162 mg aspirin (patient already had a baby aspirin today). Will treat with GI cocktail and Pepcid for presumptive GERD. If cardiac work-up in emergency department is negative, I believe patient is safe for discharge with cardiology follow-up in [place] as the symptoms are not acute. 06/19/20 13:46 Patient symptoms greatly improved after GI cocktail and Pepcid. Given chronicity of patient's symptoms I have a low suspicion for ACS. His troponin i s negative. The rest of his labs were grossly unremarkable. I will discharge patient with 1 month course of Pepcid for symptomatic relief. 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 Return precautions were discussed at length. Departure - Departure Time of Disposition: 13:46 Disposition: Home, Self-Care 01 Condition: Good Clinical Impression: GERD (gastroesophageal reflux disease) Qualifiers: Esophagitis presence: esophagitis presence not specified Qualified Code(s): K21.9 - Gastro-esophageal reflux disease without esophagitis Chest pain Qualifiers: Chest pain type: unspecified Qualified Code(s): R07.9 - Chest pain, unspecified - Discharge Information Prescriptions: Famotidine [Pepcid] 40 mg PO QPM 30 Days #30 tablet Instructions: Nonspecific Chest Pain, Adult Referrals: Brenton Penaloza MD [Primary Care Provider] - Forms: ED Department Discharge Additional Instructions: The following information is given to patients seen in the emergency department who are being discharged to home. This information is to outline your options for follow-up care. We provide all patients seen in our emergency department with a follow-up referral. The need for follow-up, as well as the timing and circumstances, are variable depending upon the specifics of your emergency department visit. If you don't have a primary care physician on staff, we will provide you with a referral. We always advise you to contact your personal physician following an emergency department visit to inform them of the circumstance of the visit and for follow-up with them and/or the need for any referrals to a consulting specialist. The emergency department will also refer you to a specialist when appropriate. This referral assures that you have the opportunity for follow-up care with a specialist. All of these measure are taken in an effort to provide you with optimal care, which includes your follow-up. Under all circumstances we always encourage you to contact your private physician who remains a resource for coordinating your care. When calling for follow-up care, please make the office aware that this follow-up is from your recent emergency room visit. If for any reason you are refused follow-up, please contact the [facility] Emergency Department at and asked to speak to the emergency department charge nurse. Please follow up with your primary care physician. If you do not have a primary care physician, see below: [facility] [address] [place] [id number] [facility] [address] [place] [id number] [facility] [address] [place] [id number] Sepsis Event Note (ED) - Evaluation Sepsis Screening Result: No Definite Risk - Focused Exam Vital Signs: Vital Signs Temp Pulse Resp BP Pulse Ox 06/19/20 12:58 97.8 F 58 L 16 153/85 H 98 - My Orders Last 24 Hours: My Active Orders 06/19/20 13:04 Cardiac Monitoring [RC] . DIRECTED EKG Documentation Completion [RC] STAT Pulse Oximetry [RC] ASDIRECTED Sodium Chloride 0.9% [Saline Flush] 10 ml FLUSH ASDIRECTED PRN Sodium Chloride 0.9% [Saline Flush] 2.5 ml FLUSH ASDIRECTED PRN Saline Lock Insert [OM.PC] Stat - Assessment/Plan Last 24 Hours: My Active Orders 06/19/20 13:04 Cardiac Monitoring [RC] . DIRECTED EKG Documentation Completion [RC] STAT Pulse Oximetry [RC] ASDIRECTED Sodium Chloride 0.9% [Saline Flush] 10 ml FLUSH ASDIRECTED PRN Sodium Chloride 0.9% [Saline Flush] 2.5 ml FLUSH ASDIRECTED PRN Saline Lock Insert [OM.PC] Stat
[2020-06-19] MEDS ORDERED: Aspirin 81 MG Tab.Chew PO ONE (13:24)
[2020-06-19] MEDS ORDERED: Aspirin 81 MG Tab.Chew ONE (13:25)
--- NOTE | 2020-06-19 13:30 | CR ---
INDICATION: chest pain. 1 image sent. prior . TECHNIQUE: Chest 1 view. COMPARISON: 03/19/20 FINDINGS: Cardiovascular and mediastinum: Heart size and vasculature are normal in caliber and appearance. Mediastinum is within normal limits. Lungs and pleural space: Lungs are clear. No sign of infiltrate or mass. No sign of pleural effusion. No pneumothorax. Bones and soft tissues: No significant findings. IMPRESSION: Unremarkable chest. Dictated by: Lan Avila MD @ 06/19/2020 13:29:32 (Electronically Signed)
[2020-06-19 13:38] LABS: BLOOD UREA NITROGEN,BUN 10 mg/dL (7.0-18.0); CARBON DIOXIDE,CO2 26.7 mmol/L (21.0-32.0); CHLORIDE,CL 101 mmol/L (98-107); GLUCOSE RANDOM 139 mg/dL (74-106); LIPASE 191 U/L (73-393); POTASSIUM,K 3.5 mmol/L (3.5-5.1); SODIUM,NA 138 mmol/L (136-148)
[2020-06-20] MEDS ORDERED: Aspirin 81 MG Tab.Chew PO ONE (13:06)
== END 2020-06-19 14:15 | disposition home or self-care (01) ==
LOC: MW.ED 12:49
DX: K21.9 Gastro-esophageal reflux disease without esophagitis (principal); I10 Essential (primary) hypertension; I25.2 Old myocardial infarction; J44.9 Chronic obstructive pulmonary disease, unspecified; R00.1 Bradycardia, unspecified; E66.9 Obesity, unspecified; Z68.34 Body mass index [BMI] 34.0-34.9, adult; Z88.8 Allergy status to other drugs, medicaments and biological substances; Z79.82 Long term (current) use of aspirin; Z79.02 Long term (current) use of antithrombotics/antiplatelets; Z79.899 Other long term (current) drug therapy
CPT/HCPCS: 36415; 71045; 80053; 83690; 83880; 84484; 85025; 85610; 85730; 93005; 96374; 99285; A9270; J3490; 93010; 99283

== ENCOUNTER 2022-07-13 09:44 | Emergency (ER) | payer BC ==
[2022-07-13 11:09] LABS: CORONAVIRUS COVID-19 NAA NEGATIVE (NEGATIVE); INFLUENZA A NAA NEGATIVE (NEGATIVE); INFLUENZA B NAA NEGATIVE (NEGATIVE)
[2022-07-13] MEDS ORDERED: predniSONE 10 MG Tab PO ONE (11:36)
== END 2022-07-13 11:50 | disposition home or self-care (01) ==
LOC: MW.ED 09:44
DX: J02.9 Acute pharyngitis, unspecified (principal); I10 Essential (primary) hypertension; I25.2 Old myocardial infarction; J44.9 Chronic obstructive pulmonary disease, unspecified; K21.9 Gastro-esophageal reflux disease without esophagitis; E66.9 Obesity, unspecified; Z68.35 Body mass index [BMI] 35.0-35.9, adult; Z88.8 Allergy status to other drugs, medicaments and biological substances; Z79.82 Long term (current) use of aspirin; Z79.899 Other long term (current) drug therapy; Z20.822 Contact with and (suspected) exposure to COVID-19
CPT/HCPCS: 0240U; 87651; 99283; A9270